=== PATIENT | male | born 1945 | race Caucasian/White ===

== ENCOUNTER → 2017-07-22 13:00 | Outpatient (CLI) | payer MEDICARE, BC, SELFPAY ==
--- NOTE | 2017-07-22 13:18 | XR_ITS ---
XR chest 2V HISTORY: ITS.REASON: AMINODORONE SURVEILLENCE, AFIB ORDERING PHYSICIAN: ARAVIND Hampton PATIENT AGE: 71 years COMPARISON: 12/19/2016 FINDINGS: There is borderline cardiomegaly without failure. Bipolar pacemaker remains in place. There are small bilateral pleural effusions which have developed in the interval slightly larger on the left compared to the right. No lobar consolidation or collapse. No evidence of interstitial fibrosis. No acute bony anomalies IMPRESSION: 1. Interval development of small bilateral pleural effusions. 2. Mild cardiomegaly without failure. 3. No evidence of interstitial lung disease
[2017-07-22 16:16] LABS: Alanine Aminotransferase 39 U/L (12-78); Albumin Level 3.7 gm/dL (3.4-5.0); Albumin/Globulin Ratio 1.4 (1.1-1.8); Alkaline Phosphatase 105 U/L (46-116); Anion Gap 10.8 mEq/L (5-15); Aspartate Amino Transferase 30 U/L (15-37); Bilirubin,Total 0.4 mg/dL (0.2-1.0); Blood Urea Nitrogen 29 mg/dL (7-18); Calcium 8.8 mg/dL (8.5-10.1); Carbon Dioxide 33 mmol/L (21.0-32.0); Chloride 106 mmol/L (98-107); Creatinine,Serum 1.51 mg/dL (0.70-1.30); Estimated Glomerular Filt Rate 46 ml/min (>60); GFR (African American) 55 ML/MIN (>60); Globulin 2.7 gm/dl (1.3-3.2); Glucose 87 mg/dL (74-106); Magnesium 1.8 mg/dL (1.4-2.2); Potassium 3.8 mmoL/L (3.5-5.1); Sodium 146 mmol/L (136-145); Thyroid Stimulating Hormone 1.85 uIU/ml (0.358-3.740); Total Protein,Serum 6.4 gm/dL (6.4-8.2)
== END ==
PROVIDERS: PCP Physician Assistant; Visit Provider Physician Assistant
DX: I48.91 Unspecified atrial fibrillation (principal); R42 Dizziness and giddiness; Z51.81 Encounter for therapeutic drug level monitoring
CPT/HCPCS: 36415; 71046; 80053; 83735; 83880; 84443

== ENCOUNTER → 2017-07-24 08:48 | Outpatient (CLI) | payer MEDICARE, BC, SELFPAY ==
--- NOTE | 2017-07-24 08:55 | CA_ITS ---
PROCEDURE: 2-D M-mode and color Doppler study INDICATIONS FOR THE TEST: Chest pain COPD Heart Murmur Tobacco Smoking Palpitations Fatigue Syncope Edema HypertensionXDiabetes Mellitus Rheumatic Fever SOB [place] ObesityXHyperlipidemia Family History HD Additional History AF,PACEMAKER,VT PATIENT INFORMATION HEIGHT: 70 WEIGHT:280 GENDER: Male B/P:150/80 2-D/M-MODE INTERPRETATION: 2-D MEASUREMENTS OBSERVED VALUES IN CMS Right Ventricular Dimension (RVDd) 2.6 Interventricular Septum (Thickness)(IVsd) 1.9 Left Ventricular Internal Dimensions(LVIDd) 5.7 Left Ventricular Posterior Wall (Thickness)(LVPWd) 1.2 Aortic Root 3.5 Aortic Cusp Separation 2.0 Left Atrial Dimensions (LAD) 4.2 2D 1. Left atrium is mildly enlarged, left ventricle is normal size, there is mild concentric left ventricular hypertrophy, visually estimated ejection fraction 55% no wall motion abnormality. 2. The right atrium is mildly enlarged, right ventricle is normal size and contractility, there is a pacemaker lead seen in the right atrium and right ventricle. 3. The aortic valve is thickened and calcified, leaflet continue to display mobility. 4. The mitral leaflets are minimally thickened and calcified, there are degenerative changes seen in both anterior and posterior mitral leaflet. 5. The tricuspid valve leaflets are minimally thickened. 6. Pulmonic valve is poorly visualized. 7. No significant pericardial effusion noted. DOPPLER INTERROGATION: Doppler interrogation of the aortic, mitral and tricuspid valve reveals presence of mild aortic, moderate to severe mitral, mild tricuspid regurgitation, calculated right ventricular systolic pressure is 47 mmHg consistent with moderate pulmonary hypertension, there is blunting of the systolic forward flow seen in the pulmonary vein. CONCLUSION: 1. Biatrial enlargement, normal left ventricular size, mild concentric left ventricular hypertrophy, visually estimated ejection fraction of 55% with no obvious regional wall motion abnormality, diastolic parameters are inconclusive. 2. Moderate to severe mitral regurgitation, there is blunting of the systolic forward flow seen in the pulmonary vein. 3. Mild aortic and tricuspid regurgitation, calculated right ventricular systolic pressure is 47 mmHg consistent with moderate pulmonary hypertension. 4. No significant pericardial effusion noted.
== END ==
PROVIDERS: PCP Physician Assistant; Visit Provider Physician Assistant
DX: I48.2 Chronic atrial fibrillation (principal); I10 Essential (primary) hypertension; R00.0 Tachycardia, unspecified
CPT/HCPCS: 93306

== ENCOUNTER → 2017-09-04 07:17 | Outpatient (CLI) | payer MEDICARE, BC, SELFPAY ==
--- NOTE | 2017-09-04 07:21 | NM_ITS ---
History and Indications: Dysrhythmia, obesity Procedure patient received a 0.4 mg of Lexiscan, resting heart rate was 71 beats per resting blood pressure 151/85, with Lexiscan maximum heart rate achieved was 70 bpm which is less than 85% of the maximum predicted heart rate and a blood pressure was 119/66. With Lexiscan patient complained of shortness of breath. Electrocardiogram: Resting electrocardiogram showed ventricular paced rythm. With Lexiscan there is less than 1.5 ST segment depression noted from the baseline EKG. The EKG portion of the Lexiscan Myoview is nondiagnostic Cardiac stress and resting SPECT images: Cardiac stress and resting SPECT images were obtained using technetium 99 Myoview 10.7 mCi at rest and 30.7 mCi at stress gated SPECT further analysis of segmental wall motion and calculation of the ejection fraction also done. Cardiac stress and the rest spect images show a fixed defect involving the inferior and posterobasal wall consistent with area of prior myocardial scarring without significant christel-infarct ischemia, computer derived ejection fraction is 40% with inferior and posterobasal wall hypokinesis. There is a fixed defect seen anteroseptally with normal contractility in the gated SPECT is likely secondary to paced rhythm with left bundle branch block. Right ventricle is mildly enlarged with normal contractility. Conclusion: 1. The EKG portion of the Lexiscan Myoview is nondiagnostic 2. Scintigraphic evidence of prior myocardial scarring involving the inferior and posterobasal wall without significant christel-infarct ischemia, computer derived ejection fraction is 40% with segmental wall motion abnormality described above, right ventricle is mildly enlarged with normal contractility. 3. Abnormal Lexiscan Myoview study
--- NOTE | 2017-09-04 10:13 | HMH.ITSHM ---
amlodipine neurontin dutasteride zoloft valsartan eliquis atorvastatin metolazom asa
== END ==
PROVIDERS: PCP Family Medicine; Visit Provider Physician Assistant
DX: I47.2 Ventricular tachycardia (principal); I20.9 Angina pectoris, unspecified
CPT/HCPCS: 78452; 93017; A9502; J2785

== ENCOUNTER → 2018-01-12 11:51 | Outpatient (CLI) | payer MEDICARE, BC, SELFPAY ==
--- NOTE | 2018-01-12 12:00 | XR_ITS ---
XR chest 2V HISTORY: ITS.REASON: HIGH RISK MEDICATION, amiodarone ORDERING PHYSICIAN: ARAVIND Hampton PATIENT AGE: 72 years COMPARISON: 07/22/2017 FINDINGS: Cardiac size is upper limits of normal. There is a bipolar pacemaker present. Lungs are clear. No lobar consolidation or collapse. No acute bony anomalies. IMPRESSION: Pacemaker present. No change with no acute finding. No convincing evidence of amiodarone lung toxicity
[2018-01-12 14:13] LABS: Alanine Aminotransferase 62 U/L (12-78); Albumin Level 3.5 gm/dL (3.4-5.0); Albumin/Globulin Ratio 1.2 (1.1-1.8); Alkaline Phosphatase 130 U/L (46-116); Anion Gap 10.8 mEq/L (5-15); Aspartate Amino Transferase 43 U/L (15-37); Bilirubin,Total 0.3 mg/dL (0.2-1.0); Blood Urea Nitrogen 32 mg/dL (7-18); Calcium 8.6 mg/dL (8.5-10.1); Carbon Dioxide 34 mmol/L (21.0-32.0); Chloride 104 mmol/L (98-107); Creatinine,Serum 1.61 mg/dL (0.70-1.30); Estimated Glomerular Filt Rate 42 ml/min (>60); GFR (African American) 51 ML/MIN (>60); Glucose 96 mg/dL (74-106); Potassium 4.8 mmoL/L (3.5-5.1); Sodium 144 mmol/L (136-145); Thyroid Stimulating Hormone 1.99 uIU/ml (0.358-3.740); Total Protein,Serum 6.5 gm/dL (6.4-8.2)
== END ==
PROVIDERS: Visit Provider Physician Assistant
DX: Z79.899 Other long term (current) drug therapy (principal); I25.10 Atherosclerotic heart disease of native coronary artery without angina pectoris
CPT/HCPCS: 36415; 71046; 80053; 84443

== ENCOUNTER → 2018-02-10 11:22 | Outpatient (CLI) | payer MEDICARE, BC, SELFPAY ==
[2018-02-10 11:56] LABS: Basophils # 0.1 K/mm3 (0-0.2); Basophils % 1.1 % (0.1-2.0); Eosinophils # 0.2 K/mm3 (0.0-0.4); Eosinophils % 3.2 % (0.1-12.0); Hematocrit 33.3 % (42.0-52.0); Hemoglobin 10.9 g/dL (14.1-18.0); Lymphocytes % 16.9 K/mm3 (10-50); Mean Corpuscular HGB Conc 32.9 g/dL (31.8-35.4); Mean Corpuscular Hemoglobin 26.5 pg (27.0-31.2); Mean Corpuscular Volume 80.7 fl (80-94); Mean Platelet Volume 7.9 fl (7.4-10.4); Monocytes # 0.4 K/mm3 (0.1-1.0); Monocytes % 5.9 % (1.7-9.3); Neutrophils # 4.3 K/mm3 (1.8-7.8); Neutrophils % 72.9 % (37.0-80.0); Platelet Count 189 K/mm3 (142-424); Red Blood Count 4.13 M/mm3 (4.60-6.20); Red Cell Distribution Width 15.3 % (11.5-17.5); White Blood Count 5.9 K/mm3 (4.8-10.8)
[2018-02-10 12:19] LABS: Creatinine,Urine Random 136 mg/dL (20-320)
[2018-02-10 14:31] LABS: Albumin Level 3.5 gm/dL (3.4-5.0); Anion Gap 8.6 mEq/L (5-15); Blood Urea Nitrogen 28 mg/dL (7-18); Calcium 8.7 mg/dL (8.5-10.1); Carbon Dioxide 32 mmol/L (21.0-32.0); Chloride 105 mmol/L (98-107); Creatinine,Serum 1.63 mg/dL (0.70-1.30); Estimated Glomerular Filt Rate 42 ml/min (>60); GFR (African American) 51 ML/MIN (>60); Glucose 111 mg/dL (74-106); Phosphorous 3.7 mg/dL (2.4-4.9); Potassium 3.6 mmoL/L (3.5-5.1); Sodium 142 mmol/L (136-145)
[2018-02-11 16:42] LABS: Calcium, Ionized 4.8 mg/dL (4.5-5.6); Parathyroid Hormone Intact 36 pg/mL (15-65); Vitamin D 25 Hydroxy 33.6 ng/mL (30.0-100.0)
[2018-02-11 16:43] LABS: Microalbumin, Urine 59.1 ug/mL (Not Estab.)
== END ==
PROVIDERS: Visit Provider Internal Medicine Nephrology
DX: N18.3 Chronic kidney disease, stage 3 (moderate) (principal)
CPT/HCPCS: 36415; 80069; 82043; 82330; 82570; 82652; 83970; 85025

== ENCOUNTER → 2018-03-01 14:10 | Outpatient (POV) | payer MEDICARE, BC, SELFPAY | PROVIDERS: PCP Family Medicine; Visit Provider Internal Medicine Nephrology | DX: Z00.00 Encounter for general adult medical examination without abnormal findings (principal) ==

== ENCOUNTER → 2018-07-07 12:17 | Outpatient (CLI) | payer MEDICARE, BC, SELFPAY ==
--- NOTE | 2018-07-07 12:25 | XR_ITS ---
XR chest 2V HISTORY: Continuing observation for amiodarone lung toxicity ITS.REASON: HIGH RISK MEDICATION, AMIODARONE THERAPY ORDERING PHYSICIAN: ARAVIND Hampton PATIENT AGE: 72 years COMPARISON: PA and lateral chest 01/12/2018 FINDINGS: The cardiomediastinal silhouette and pulmonary vascularity are within normal limits. The lungs are clear without infiltrates, suspicious nodules, or pleural effusions. There may be some minimal left basilar atelectasis. No acute bony abnormalities. The cardiac pacemaker and dual chamber electrodes are again noted. IMPRESSION: Negative chest, no acute finding and no significant interval change from the previous study
== END ==
PROVIDERS: PCP Family Medicine; Visit Provider Physician Assistant
DX: Z51.81 Encounter for therapeutic drug level monitoring (principal); Z79.899 Other long term (current) drug therapy
CPT/HCPCS: 71046

== ENCOUNTER → 2018-07-12 10:35 | Outpatient (CLI) | payer MEDICARE, BC, SELFPAY ==
--- NOTE | 2018-07-12 10:39 | CI_ITS ---
Cerebrovascular Exam Indications: 433.10 Occlusion/stenosis of carotid artery without cerebral infarction. IMPRESSIONS 1. The bilateral vertebral arteries are patent with normal antegrade flow. 2. Study suggests less than 20% stenosis involving the right internal carotid artery. No change from the study of December 2016. 3. Study suggests 50-69% stenosis involving the left internal carotid artery. No change from the study of December 2016. History: Risk factors: Hypertension. Carotid duplex study. Complete study and Doppler flow study including spectral analysis, color and mercer scale imaging. Height: Height: 177.8cm. Height: 70in. Location: Vascular laboratory. Patient status: Outpatient. Tables: Arterial flow: + +--------+--------+ Location V sys V ed + +--------+--------+ Right CCA - proximal 77.8cm/s 14.9cm/s + +--------+--------+ Right CCA - distal 88cm/s 18.2cm/s + +--------+--------+ Right ECA 139cm/s -------- + +--------+--------+ Right ICA - proximal 99.2cm/s 23.7cm/s + +--------+--------+ Right ICA - mid 84.5cm/s 24.4cm/s + +--------+--------+ Right ICA - distal 114cm/s 36.3cm/s + +--------+--------+ Right vertebral 53.3cm/s -------- + +--------+--------+ Left CCA - proximal 115cm/s 23.6cm/s + +--------+--------+ Left CCA - distal 105cm/s 21.8cm/s + +--------+--------+ Left ECA 152cm/s -------- + +--------+--------+ Left ICA - proximal 155cm/s 35.8cm/s + +--------+--------+ Left ICA - mid 161cm/s 30.9cm/s + +--------+--------+ Left ICA - distal 88.9cm/s 27.3cm/s + +--------+--------+ Left vertebral 55.9cm/s -------- + +--------+--------+ Velocity ratios: + + + + + + Right, V sys Right, V ed Left, V sys Left, V ed + + + + + + Max ICA/dist CCA 1.3 1.99 1.53 1.64 + + + + + + (Report amended ) Electronically signed by: Demetrius Martin [id number]
== END ==
PROVIDERS: PCP Family Medicine; Visit Provider Physician Assistant
DX: I65.23 Occlusion and stenosis of bilateral carotid arteries (principal)
CPT/HCPCS: 93880

== ENCOUNTER 2018-10-27 12:18 | Inpatient (IN) ==
--- NOTE | 2018-10-27 13:32 | History & Physical Report ---
*Admission Date: 10/27/18 *Chief complaint: weak; anemic *History of present illness: Mr. Mattson is a 72-year-old male with a history of hypertension, anxiety, arthritis, BPH, permanent pacemaker, and recent left knee replacement at [facility] in [facility] on 10/04/2018 complicated by renal failure and respiratory failure requiring brief mechanical ventilation with follow-up rehab at [facility] from 10/19/2018 to 10/26/2018. Patient did not feel he was doing well at [facility] and signed himself out AMA yesterday on 10/26/2018 and presented to the office of [facility] today for follow-up. He states that he could not handle the environment and was unable to sleep for 5 da ys. Thus he felt he had to leave. He had labs done yesterday at [facility] with a sodium of 136, potassium of 3.8, blood sugar of 108, BUN 15, and creatinine of 3.16. His H&H at that time were 8.2 and 27 with a white blood cell count 4.1. Platelet count was 340,000. With presentation today at [facility] hemoglobin was 8.5. Dr. Johnson also saw the patient. Infusion of packed red blood cells was planned. Patient and decided that it would be best for him to be admitted briefly for IV fluids and blood administration due to renal failure and low blood pressure. To note he had many prescriptions with changes in his blood pressure medicine at [facility]. After discharge he resumed his previous medicines and took several HTN healthy medicines for hypertension after going home. IN t is he office of [facility] systolic blood pressure was 88 and did go up to 94. His did not feel that she could manage him at home with these abnormals. With patient exam in the office patient did appear comfortable. He was quite pale. He denied chest pain and shortness of breath. [facility] History Medical History: Reports:: Anxiety, Atrial Fibrillation, Cancer (SKIN CANCER), Depression, Gastroesophageal Reflux Disease(GERD), Hypertension, Internal Pacemaker Denies:: Diabetes Mellitus Type 1, Diabetes Mellitus Type 2, MRSA, Palpitations *Have you ever received a pneumonia vaccine?: Yes *Have you received a flu vaccine this season?: Yes Other Medical History: Reports: Anemia, Hypothyroidism Laterality Cases: Left: Arthroscopy Hip, Arthroscopy Knee Other Surgeries: Yes: Hernia Repair, Pacemaker Amputation: No Fractures: No Comment: Parathyroidectomy 1983; spinal stenosis surgery 05/2013; excision of right sided grade 1 meningioma at in February 2017 - *Social History Educational Level: Completed High School Smoking Status: Never smoker Alcohol Intake: never *Occupational Status:: retired Housing: [facility] Household Members: spouse *Travel in the last 8 weeks: None - Psychiatric History Expresses thoughts of harming self/others: None Suicide Plan Description: No Plan Family Hx:: Cancer Review of Systems - Constitutional Reports lack of energy, Denies fever(s) - ENT Denies ear pain, Denies sore throat - *Cardiovascular Denies chest pain, Denies shortness of breath - *Respiratory Denies chest congestion, Denies cough, Denies shortness of breath - *Gastrointestinal Reports heartburn, Reports nausea, Denies abdominal pain, Denies vomiting Comments: Decrease in appetite - *Genitourinary Denies difficulty urinating - *Musculoskeletal Reports joint pain Comments: Postoperative pain of the left knee Meds Allergies Allergy/AdvReac Type Severity Reaction Status Date / Time GLUTEN (FOOD) Allergy Unknown WHEAT Uncoded 06/30/17 15:08 GLUTEN- RASH & DIARRHEA Exam Vital signs and Labs for Last 24 Hours: Temp Pulse Resp BP Pulse Ox 97.6 F 71 18 100/55 L 99 10/27/18 12:38 10/27/18 12:38 10/27/18 12:38 10/27/18 12:38 10/27/18 12:38 I & O for Last 24 hours: Intake & Output 10/25/18 10/26/18 10/27/18 10/28/18 11:59 11:59 11:59 11:59 Weight 236 lb 8 oz - Constitutional no acute distress Comments: Presents in wheelchair. Appears pale. Appears tired. - *Routine HEENT Exam Head: Present: normocephalic, atraumatic Eye: Present: PERRL. Absent: conjunctival icterus, scleral injection ENT: Present: mucous membranes dry, oropharynx clear - *Routine Neck Exam Present: supple. Absent: carotid bruit, lymphadenopathy, thyromegaly - *Routine Respiratory Exam Present: CTA bilaterally (Anteriorly and posteriorly) - *Routine Cardiovascular Exam Present: RRR - *Routine Abdominal Exam Present: soft, normoactive bowel sounds. Absent: tenderness - *Routine Extremities Exam Absent: edema, calf tenderness - *Routine Skin Exam Comments: Patient does have a small open area in the sacral area between the buttocks - *Routine Neurological Exam Present: alert, oriented X3 Assessment and Plan (1) Status post left knee replacement Current visit: Yes Status: Acute Category: Surgical Code(s): Z96.652 - Presence of left artificial knee joint (2) Anemia Current visit: Yes Status: Acute Category: Medical Code(s): D64.9 - Anemia, unspecified (3) Hypotension Current visit: Yes Status: Acute Category: Medical Code(s): I95.9 - Hypotension, unspecified (4) Renal failure Current visit: Yes Status: Acute Category: Medical Code(s): N19 - Unspecified kidney failure (5) History of atrial fibrillation Current visit: Yes Status: Chronic Category: Medical Code(s): Z86.79 - Personal history of other diseases of the circulatory system (6) History of permanent cardiac pacemaker placement Current visit: Yes Status: Chronic Category: Surgical Code(s): Z95.0 - Presence of cardiac pacemaker - Assessment and plan all Dx Assessment and Plan for all problems:: Patient has been started on IV fluids at 125/h. He will receive 1 unit of packed red blood cells with follow-up H&H. He will be placed on prorate clerk throughout this. He started on some of his home meds with elimination of his hypertensive medicines. He will continue with his antiarrhythmics amiodarone an d metoprolol. Discharge patient will need home health for care and for physical therapy. He will also need follow-up with nephrology.
[2018-10-27 13:49] LABS: Basophils # 0.1 K/mm3 (0-0.2); Eosinophils # 0.1 K/mm3 (0.0-0.4); Hematocrit 28.2 % (42.0-52.0); Lymphocytes # 0.7 K/mm3 (0.7-4.5); Lymphocytes % 14.6 % (10-50); Mean Corpuscular HGB Conc 31.8 g/dL (31.8-35.4); Mean Corpuscular Hemoglobin 26.5 pg (27.0-31.2); Mean Corpuscular Volume 83.2 fl (80-94); Mean Platelet Volume 6.9 fl (7.4-10.4); Monocytes # 0.3 K/mm3 (0.1-1.0); Monocytes % 6.2 % (1.7-9.3); Neutrophils # 3.7 K/mm3 (1.8-7.8); Neutrophils % 77.2 % (37.0-80.0); Platelet Count 285 K/mm3 (142-424); Red Blood Count 3.39 M/mm3 (4.60-6.20); White Blood Count 4.8 K/mm3 (4.8-10.8)
[2018-10-27 14:09] LABS: Albumin Level 3.1 gm/dL (3.4-5.0); Albumin/Globulin Ratio 0.7 (1.1-1.8); Anion Gap 16.8 mEq/L (5-15); Bilirubin,Total 0.8 mg/dL (0.2-1.0); Calcium 9.1 mg/dL (8.5-10.1); Globulin 4.5 gm/dl (1.3-3.2); Potassium 3.8 mmoL/L (3.5-5.1); Total Protein,Serum 7.6 gm/dL (6.4-8.2)
--- NOTE | 2018-10-27 14:16 | Pharmacy Consult Notes ---
[facility] Pharmacy VTE Monitoring - Patient Demographics Admission date: 10/27/18 Report Date: 10/27/18 Time: 14:15 Allergies/Adverse Reactions: Patient Allergies No Known Drug Allergies Allergy (Verified 10/27/18 14:00) Unknown allergy reaction GLUTEN (FOOD) Allergy (Unknown, Uncoded 06/30/17 15:08) WHEAT GLUTEN- RASH & DIARRHEA Height: 1.78 m Weight: 107.275 kg Patient Problems: Current Active Problems Status post left knee replacement (Acute) Anemia (Acute) Hypotension (Acute) Renal failure (Acute) History of atrial fibrillation (Chronic) History of permanent cardiac pacemaker placement (Chronic) - VTE Risk Labs: VTE Related Lab Results Hgb 9.0 g/dL (14.1-18.0) L 10/27/18 13:25 Hct 28.2 % (42.0-52.0) L 10/27/18 13:25 Plt Count 285 K/mm3 (142-424) 10/27/18 13:25 BUN 56 mg/dL (7-18) H 10/27/18 13:25 Creatinine 4.07 mg/dL (0.70-1.30) H 10/27/18 13:25 Estimated Creat Clear 25 mL/min (50-200) 10/27/18 13:25 Was VTE Risk Assessment Performed: Yes VTE Score: 6 VTE Risk Level: Moderate Risk - Prophylaxis VTE Prophylaxis Ordered?: Yes Types of VTE Prophylaxis: TEDS Knee High Location of Applied Device: Bilateral Lower Extremeties - VTE Diagnosis Confirmed Treatment or plan recommended: Continue Current Treatment
[2018-10-27 14:56] LABS: Hematocrit 29.2 % (42.0-52.0); Hemoglobin 9.2 g/dL (14.1-18.0)
[2018-10-28 07:17] LABS: Basophils % 0.7 % (0.1-2.0); Eosinophils # 0.1 K/mm3 (0.0-0.4); Eosinophils % 2.8 % (0.1-12.0); Lymphocytes # 0.8 K/mm3 (0.7-4.5); Lymphocytes % 21.4 % (10-50); Mean Corpuscular Hemoglobin 26.3 pg (27.0-31.2); Mean Corpuscular Volume 82.1 fl (80-94); Mean Platelet Volume 6.9 fl (7.4-10.4); Monocytes # 0.2 K/mm3 (0.1-1.0); Monocytes % 6.4 % (1.7-9.3); Neutrophils # 2.5 K/mm3 (1.8-7.8); Neutrophils % 68.7 % (37.0-80.0); Platelet Count 214 K/mm3 (142-424); Red Blood Count 2.88 M/mm3 (4.60-6.20); Red Cell Distribution Width 15.8 % (11.5-17.5); White Blood Count 3.7 K/mm3 (4.8-10.8)
[2018-10-28 07:24] LABS: Albumin Level 2.3 gm/dL (3.4-5.0); Albumin/Globulin Ratio 0.7 (1.1-1.8); Anion Gap 12.6 mEq/L (5-15); Bilirubin,Total 0.5 mg/dL (0.2-1.0); Globulin 3.5 gm/dl (1.3-3.2); Potassium 3.6 mmoL/L (3.5-5.1); Total Protein,Serum 5.8 gm/dL (6.4-8.2)
[2018-10-28 07:26] LABS: Hematocrit 23.6 % (42.0-52.0); Hemoglobin 7.6 g/dL (14.1-18.0)
--- NOTE | 2018-10-28 08:36 | Progress Note ---
Internal Medicine - PN: Subj *Date: 10/28/18 *Time: 08:34 Interval history: Patient states he is feeling well this morning. He denies any pain other than in his buttock from a pressure ulcer. He is requesting some medication for this. He states he slept decently last night and ate a good breakfast this morning. Exam Vital signs and Labs for Last 24 Hours: Temp Pulse Resp BP Pulse Ox 97.7 F 72 18 101/55 L 98 10/28/18 08:00 10/28/18 08:00 10/28/18 08:00 10/28/18 08:00 10/28/18 08:00 Laboratory Results - last 24 hr 10/27/18 13:25: WBC 4.8, RBC 3.39 L, Hgb 9.0 L, Hct 28.2 L, MCV 83.2, MCH 26.5 L , MCHC 31.8, RDW 16.0, Plt Count 285, MPV 6.9 L, Neut % (Auto) 77.2, Lymph % (Auto) 14.6, Oxford % (Auto) 6.2, Eos % (Auto) 1.0, Baso % (Auto) 1.0, Neut # (Auto) 3.7, Lymph # (Auto) 0.7, Oxford # (Auto) 0.3, Eos # (Auto) 0.1, Baso # (Auto) 0.1 10/27/18 13:25: Sodium 137, Potassium 3.8, Chloride 101, Carbon Dioxide 23, Anion Gap 16.8 H, BUN 56 H, Creatinine 4.07 H, Estimated Creat Clear 25, Estimated GFR 15 L*, Est GFR ( Amer) 18 L*, Glucose 97, Calcium 9.1, Magnesium 1.9, Total Bilirubin 0.8, AST 55 H, ALT 39, Alkaline Phosphatase 165 H , Total Protein 7.6, Albumin 3.1 L, Globulin 4.5 H, Albumin/Globulin Ratio 0.7 L 10/27/18 13:25: Blood Type Confirm A Positive 10/27/18 13:35: Blood Type A Positive, Antibody Screen Negative, Crossmatch (AHG) See Detail 10/27/18 13:35: Hgb 9.2 L, Hct 29.2 L 10/28/18 06:53: WBC 3.7 L, RBC 2.88 L, Hgb 7.6 L*, Hct 23.6 L*, MCV 82.1, MCH 26.3 L, MCHC 32.0, RDW 15.8, Plt Count 214, MPV 6.9 L, Neut % (Auto) 68.7, Lymph % (Auto) 21.4, Oxford % (Auto) 6.4, Eos % (Auto) 2.8, Baso % (Auto) 0.7, Neut # (Auto) 2.5, Lymph # (Auto) 0.8, Oxford # (Auto) 0.2, Eos # (Auto) 0.1, Baso # (Auto) 0.0 10/28/18 06:53: Sodium 138, Potassium 3.6, Chloride 106, Carbon Dioxide 23, Anion Gap 12.6, BUN 57 H, Creatinine 3.48 H, Estimated Creat Clear 30, Estimated GFR 17 L*, Est GFR ( Amer) 21 L, Glucose 93, Calcium 8.0 L D, Total Bilirubin 0.5, AST 40 H D, ALT 33, Alkaline Phosphatase 124 H, Total Protein 5.8 L, Albumin 2.3 L D, Globulin 3.5 H, Albumin/Globulin Ratio 0.7 L I & O for Last 24 hours: Intake & Output 10/25/18 10/26/18 10/27/18 10/28/18 11:59 11:59 11:59 11:59 Intake Total 2898 / 2898 Output Total 700 / 700 Balance 2198 / 2198 Weight 241 lb 7 oz - Constitutional no acute distress - *Routine Respiratory Exam Present: CTA bilaterally - *Routine Cardiovascular Exam Present: RRR - *Routine Abdominal Exam Present: soft, normoactive bowel sounds. Absent: tenderness - *Routine Extremities Exam Absent: cyanosis, clubbing, edema - *Routine Skin Exam Present: pallor - *Routine Neurological Exam Present: alert, oriented X3 Assessment and Plan (1) Status post left knee replacement Current visit: Yes Status: Acute Category: Surgical Code(s): Z96.652 - Presence of left artificial knee joint (2) Anemia Current visit: Yes Status: Acute Category: Medical Code(s): D64.9 - Anemia, unspecified (3) Hypotension Current visit: Yes Status: Acute Category: Medical Code(s): I95.9 - Hypotension, unspecified (4) Renal failure Current visit: Yes Status: Acute Category: Medical Code(s): N19 - Uns pecified kidney failure (5) History of atrial fibrillation Current visit: Yes Status: Chronic Category: Medical Code(s): Z86.79 - Personal history of other diseases of the circulatory system (6) History of permanent cardiac pacemaker placement Current visit: Yes Status: Chronic Category: Surgical Code(s): Z95.0 - Presence of cardiac pacemaker - Assessment and plan all Dx Assessment and Plan for all problems:: Renal function has improved only slightly. Patient's H&H has decreased with some hydration. He will need a transfusion with 2 units of packed red blood cells today. Will order zinc oxide for his pressure ulcer.
[2018-10-28 18:04] LABS: Hematocrit 32.5 % (42.0-52.0)
[2018-10-29 07:09] LABS: Basophils % 1.1 % (0.1-2.0); Eosinophils # 0.1 K/mm3 (0.0-0.4); Eosinophils % 3.6 % (0.1-12.0); Hematocrit 28.6 % (42.0-52.0); Lymphocytes # 0.7 K/mm3 (0.7-4.5); Lymphocytes % 19.2 % (10-50); Mean Corpuscular HGB Conc 32.6 g/dL (31.8-35.4); Mean Corpuscular Volume 82.8 fl (80-94); Monocytes # 0.3 K/mm3 (0.1-1.0); Monocytes % 8.4 % (1.7-9.3); Neutrophils # 2.4 K/mm3 (1.8-7.8); Neutrophils % 67.8 % (37.0-80.0); Platelet Count 190 K/mm3 (142-424); Red Blood Count 3.45 M/mm3 (4.60-6.20); Red Cell Distribution Width 15.7 % (11.5-17.5); White Blood Count 3.6 K/mm3 (4.8-10.8)
[2018-10-29 07:11] LABS: Anion Gap 14.4 mEq/L (5-15); Calcium 8.3 mg/dL (8.5-10.1); Potassium 3.4 mmoL/L (3.5-5.1)
[2018-10-29 07:27] LABS: Hemoglobin 9.3 g/dL (14.1-18.0)
--- NOTE | 2018-10-29 08:08 | Progress Note ---
Internal Medicine - PN: Subj *Date: 10/29/18 *Time: 08:06 Interval history: Patient states he is feeling much better this morning. He received a blood transfusion yesterday. His H&H has improved as has his renal function. His blood pressure has also improved. Exam Vital signs and Labs for Last 24 Hours: Temp Pulse Resp BP Pulse Ox 98.3 F 69 17 165/63 H 95 10/29/18 04:00 10/29/18 04:00 10/29/18 04:00 10/29/18 04:00 10/29/18 04:00 Laboratory Results - last 24 hr 10/27/18 13:35: Blood Type A Positive, Antibody Screen Negative, Crossmatch (AHG) See Detail 10/28/18 17:52: Hgb 11.0 L D, Hct 32.5 L 10/29/18 06:25: WBC 3.6 L, RBC 3.45 L, Hgb 9.3 L D, Hct 28.6 L, MCV 82.8, MCH 27.0, MCHC 32.6, RDW 15.7, Plt Count 190, MPV 7.0 L, Neut % (Auto) 67.8, Lymph % (Auto) 19.2, Nash % (Auto) 8.4, Eos % (Auto) 3.6, Baso % (Auto) 1.1, Neut # (Auto) 2.4, Lymph # (Auto) 0.7, Nash # (Auto) 0.3, Eos # (Auto) 0.1, Baso # (Auto) 0.0 10/29/18 06:25: Sodium 140, Potassium 3.4 L, Chloride 107, Carbon Dioxide 22, Anion Gap 14.4, BUN 47 H, Creatinine 2.24 H D, Estimated Creat Clear 47, Estimated GFR 29 L, Est GFR ( Amer) 35 L D, Glucose 88, Calcium 8.3 L I & O for Last 24 hours: Intake & Output 10/26/18 10/27/18 10/28/18 10/29/18 11:59 11:59 11:59 11:59 Intake Total 2898 / 2898 3299 / 3299 Output Total 700 / 700 1900 / 1900 Balance 2198 / 2198 1399 / 1399 Weight 241 lb 7 oz 244 lb 2 oz - Constitutional no acute distress - *Routine Respiratory Exam Present: CTA bilaterally - *Routine Cardiovascular Exam Present: RRR - *Routine Abdominal Exam Present: soft, normoactive bowel sounds. Absent: tenderness - *Routine Extremities Exam Present: edema (bilateral LE). Absent: cyanosis, clubbing - *Routine Skin Exam Comments: better color today Assessment and Plan (1) Status post left knee replacement Current visit: Yes Status: Acute Category: Surgical Code(s): Z96.652 - Presence of left artificial knee joint (2) Anemia Current visit: Yes Status: Acute Category: Medical Code(s): D64.9 - Anemia, unspecified (3) Hypotension Current visit: Yes Status: Acute Category: Medical Code(s): I95.9 - Hypotension, unspecified (4) Renal failure Current visit: Yes Status: Acute Category: Medical Code(s): N19 - Unspecified kidney failure (5) History of atrial fibrillation Current visit: Yes Status: Chronic Category: Medical Code(s): Z86.79 - Personal history of other diseases of the circulatory system (6) History of permanent cardiac pacemaker placement Current visit: Yes Status: Chronic Category: Surgical Code(s): Z95.0 - Presence of cardiac pacemaker - Assessment and plan all Dx Assessment and Plan for all problems:: Patient is improving. Will discuss further care with Dr. lo.
--- NOTE | 2018-11-01 21:19 | Discharge Summary ---
General - General Admission date:: 10/27/18 Discharge date: 10/29/18 HPI HPI: Mr. Mattson is a 72-year-old male with a history of hypertension, anxiety, arthritis, BPH, permanent pacemaker, and recent left knee replacement at [facility] in [facility] on 10/04/2018 complicated by renal failure and respiratory failure requiring brief mechanical ventilation with follow-up rehab at [facility] from 10/19/2018 to 10/26/2018. Patient did not feel he was doing well at [facility] and signed himself out AMA yesterday on 10/26/2018 and presented to the office of [facility] today for follow-up. He states that he could not handle the environment and was unable to sleep for 5 days. Thus he felt he had to leave. He had labs done yesterday at [facility] with a sodium of 136, potassium of 3.8, blood sugar of 108, BUN 15, and creatinine of 3.16. His H&H at that time were 8.2 and 27 with a white blood cell count 4.1. Platelet count was 340,000. With presentation today at [facility] hemoglobin was 8.5. Dr. Lo also saw the patient. Infusion of packed red blood cells was planned. Patient and decided that it would be best for him to be admitted briefly for IV fluids and blood administration due to renal failure and low blood pressure. To note he had many prescriptions with changes in his blood pressure medicine at [facility]. After discharge he resumed his previous medicines and took several HTN healthy medicines for hypertension after going home. IN t is he office of [facility] systolic blood pressure was 88 and did go up to 94. His did not feel that she could manage him at home with these abnormals. With patient exam in the office patient did appear comfortable. He was quite pale. He denied chest pain and shortness of breath. Hospital Course Hospital Course: A blood transfusion was ordered and the patient was started on IV fluids at 125 milliliters per hour. He was placed on a residential monitor and some of his home medications were reordered with the elimination of his hypertensive medications due to low blood pressure. The patient had a chest x-ray showing nothing acute. When his H&H was initially checked at [facility], his hemoglobin was 9 and when repeated, it was 9.2. He therefore did not get a blood transfusion during his first day of admission. His repeat H&H after hydration was 7.6 and 23.6, therefore 2 units of packed red blood cells were transfused. His H&H after this was 11 and 32.5. His renal function did improve with hydration but was still elevated at the time of discharge. He did feel better after receiving blood and denied any pain other than in his buttocks from a pressure wound. Medication was ordered for this. He began eating well and his blood pressure improved. He was stable to be discharged home and will follow up with Dr. lo in the office. He will have home health service at home for continued rehab. Objective Vital signs: Temp Pulse Resp BP Pulse Ox 98.1 F 70 18 148/68 H 96 10/29/18 08:00 10/29/18 08:00 10/29/18 08:00 10/29/18 08:00 10/29/18 08:00 Narrative: - Constitutional no acute distress Comments: Presents in wheelchair. Appears pale. Appears tired. - *Routine HEENT Exam Head: Present: normocephalic, atraumatic Eye: Present: PERRL. Absent: conjunctival icterus, scleral injection ENT: Present: mucous membranes dry, oropharynx clear - *Routine Neck Exam Present: supple. Absent: carotid bruit, lymphadenopathy, thyromegaly - *Routine Respiratory Exam Present: CTA bilaterally (Anteriorly and posteriorly) - *Routine Cardiovascular Exam Present: RRR - *Routine Abdominal Exam Present: soft, normoactive bowel sounds. Absent: tenderness - *Routine Extremities Exam Absent: edema, calf tenderness - *Routine Skin Exam Comments: Patient does have a small open area in the sacral area between the buttocks - *Routine Neurological Exam Present: alert, oriented X3 DS: Diagnosis - Discharge Diagnosis (1) Status post left knee replacement Status: Acute (2) Anemia Status: Acute (3) Hypotension Status: Acute (4) Renal failure Status: Acute (5) History of atrial fibrillation Status: Chronic (6) History of permanent cardiac pacemaker placement Status: Chronic Discharge Plan - Patient Discharge Instructions ACTIVITY: Ambulate as tolerated DIET: continue same diet Patient Instructions: Anemia, DI for Kidney Failure - Follow up Plan Disposition: Home Health Service Home Medications: Home Medications Medication Instructions Recorded Confirmed Type Amiodarone HCl 200 mg PO DAILY 10/27/18 10/27/18 History Apixaban [Eliquis] 5 mg PO BID 10/27/18 10/27/18 History Atorvastatin Calcium [Atorvastatin 40 mg PO HS 10/27/18 10/27/18 History 40mg Tab] Dutasteride 0.5 mg PO DAILY 10/27/18 10/27/18 History Gabapentin [Neurontin 800mg Tab] 800 mg PO TID 10/27/18 10/27/18 History Metoprolol Succinate [Toprol XL 100 mg PO DAILY 10/27/18 10/27/18 History 100mg tablet] Sertraline HCl [Zoloft] 200 mg PO DAILY 10/27/18 10/27/18 History Terazosin HCl 20 mg PO DAILY 10/27/18 10/28/18 History Hydrocodone/Acetaminophen [Lortab 1 tab PO Q6HP PRN tab 10/29/18 Rx 10/325mg tablet] Potassium Chloride [Klor-Con 10mEq 20 meq PO DAILY #30 tablet.er 10/29/18 Rx tab] Prescriptions/Medication Reconciliation: New Hydrocodone/Acetaminophen [Lortab 10/325mg tablet] 1 tab PO Q6HP PRN tab PRN Reason: POSTOP PAIN Continued Amiodarone HCl 200 mg PO DAILY Sertraline HCl [Zoloft] 200 mg PO DAILY Atorvastatin Calcium [Atorvastatin 40mg Tab] 40 mg PO HS Dutasteride 0.5 mg PO DAILY Metoprolol Succinate [Toprol XL 100mg tablet] 100 mg PO DAILY Terazosin HCl 20 mg PO DAILY Apixaban [Eliquis] 5 mg PO BID Gabapentin [Neurontin 800mg Tab] 800 mg PO TID Changed Potassium Chloride [Klor-Con 10mEq tab] 20 meq PO DAILY #30 tablet.er Discontinued Hydralazine HCl [Hydralazine HCl 25mg Tablet] 25 mg PO DIRECTED metOLazone [metOLazone 2.5mg Tablet] 2.5 mg PO DAILY Valsartan/Hydrochlorothiazide [Valsartan-Hctz 320-25 mg Tab] 1 each PO DAILY Amlodipine Besylate [Amlodipine 5mg tab] 5 mg PO DAILY
== END 2018-10-29 11:55 | disposition home health service (06) | DRG 316 ==
LOC: 2ND → OBSVTOIN 12:23
PROVIDERS: ADMIT Family Medicine; ATTEND Family Medicine
CPT/HCPCS: 36415; 71020; 71046; 80048; 80053; 83735; 85014; 85018; 85025; 86850; P9016

== ENCOUNTER → 2018-11-12 09:52 | Outpatient (CLI) | payer MEDICARE, BC, SELFPAY ==
[2018-11-12 10:17] LABS: Basophils # 0.1 K/mm3 (0-0.2); Basophils % 0.9 % (0.1-2.0); Eosinophils # 0.3 K/mm3 (0.0-0.4); Eosinophils % 5.4 % (0.1-12.0); Hematocrit 30.1 % (42.0-52.0); Hemoglobin 9.7 g/dL (14.1-18.0); Lymphocytes # 0.8 K/mm3 (0.7-4.5); Mean Corpuscular HGB Conc 32.4 g/dL (31.8-35.4); Mean Corpuscular Hemoglobin 26.8 pg (27.0-31.2); Mean Corpuscular Volume 82.8 fl (80-94); Mean Platelet Volume 8.8 fl (7.4-10.4); Monocytes # 0.3 K/mm3 (0.1-1.0); Monocytes % 6.3 % (1.7-9.3); Neutrophils # 3.6 K/mm3 (1.8-7.8); Neutrophils % 72.4 % (37.0-80.0); Platelet Count 214 K/mm3 (142-424); Red Blood Count 3.63 M/mm3 (4.60-6.20)
[2018-11-12 11:24] LABS: Anion Gap 12.8 mEq/L (5-15); Blood Urea Nitrogen 22 mg/dL (7-18); Carbon Dioxide 26 mmol/L (21.0-32.0); Chloride 105 mmol/L (98-107); Potassium 3.8 mmoL/L (3.5-5.1); Sodium 140 mmol/L (136-145)
[2018-11-12 11:25] LABS: Albumin Level 3.1 gm/dL (3.4-5.0); Calcium 8.8 mg/dL (8.5-10.1); Estimated Glomerular Filt Rate 43 ml/min (>60); GFR (African American) 52 ML/MIN (>60); Glucose 95 mg/dL (74-106); Phosphorous 3.5 mg/dL (2.4-4.9); Uric Acid 6.5 mg/dL (2.6-7.2)
[2018-11-13 20:42] LABS: Calcium, Ionized 5.2 mg/dL (4.5-5.6); Parathyroid Hormone Intact 29 pg/mL (15-65); Vitamin D 25 Hydroxy 33.8 ng/mL (30.0-100.0)
== END ==
PROVIDERS: Visit Provider Internal Medicine Nephrology
DX: N18.3 Chronic kidney disease, stage 3 (moderate) (principal)
CPT/HCPCS: 36415; 80069; 82330; 82652; 83520; 83970; 84550; 85025

== ENCOUNTER → 2018-11-15 12:19 | Outpatient (POV) | payer MEDICARE, BC, SELFPAY | PROVIDERS: Visit Provider Internal Medicine Nephrology | DX: Z00.00 Encounter for general adult medical examination without abnormal findings (principal) ==

== ENCOUNTER 2018-12-12 08:47 | Inpatient (IN) | payer MEDICARE, BC, SELFPAY ==
[2018-12-12] VITALS (13 sets, daily range): BP systolic 132–178; BP diastolic 66–86; PULSE 68–80; RESP 16–22; TEMP 36.6–36.8; O2SAT 92–100; BMI 35.2
--- NOTE | 2018-12-12 08:58 | XR_ITS ---
XR chest portable HISTORY: Shortness of breath ITS.REASON: marlin ORDERING PHYSICIAN: Ari Fishman MD PATIENT AGE: 72 years COMPARISON: 10/27/2018 FINDINGS: Borderline cardiomegaly without failure. Bipolar pacemaker is present from left subclavian approach. Patchy density is present in the lung bases and may be due to areas of atelectasis or infiltrate. Small bilateral pleural effusions are suspected. No acute bony anomalies. IMPRESSION: Patchy bibasilar airspace disease with small bilateral effusions
--- NOTE | 2018-12-12 09:00 | HMH.EDGENADL ---
ED Disposition Clinical Impression: Elevated troponin Congestive heart failure Qualifiers: Heart failure type: unspecified Heart failure chronicity: unspecified Qualified Code(s): I50.9 - Heart failure, unspecified Disposition: Admitted as Observation Condition on Discharge: Good Referrals: Aleksandar Lo MD [Primary Care Provider] - - Critical Care Critical Care Time: No Attestation: On 12/12/18, the high probability of a clinically significant, sudden or life threatening deterioration of the following system(s) required my full and direct attention, intervention and personal management. The time I documented below is in addition to time spent performing reported procedures but includes the following listed in this critical care notation. Medical Decision Making - Medical Records Medical records reviewed: Yes: I reviewed the patient's medical records. - Héctor Inquiry Pt receiving controlled substance: No Vital Signs: 12/12/18 08:47 12/12/18 08:56 Temperature 98 F Temperature Source Oral Pulse Rate [Left Apical] 70 76 Respiratory Rate 18 Blood Pressure [Right Arm] 157/73 H 178/78 H Blood Pressure Mean [Right Arm] 101 111 02 Sat by Pulse Oximetry 94 L 93 L Oxygen Delivery Method Room Air - Lab Data Lab results reviewed: Yes: I reviewed the patient's lab results. Lab Results 12/12/18 09:05: WBC 5.5, RBC 3.44 L, Hgb 9.4 L, Hct 27.7 L, MCV 80.4, MCH 27.2, MCHC 33.8, RDW 16.3, Plt Count 245, MPV 7.8, Neut % (Auto) 78.1, Lymph % (Auto) 12.0, [place] % (Auto) 6.0, Eos % (Auto) 3.4, Baso % (Auto) 0.6, Neut # (Auto) 4.3, Lymph # (Auto) 0.7, [place] # (Auto) 0.3, Eos # (Auto) 0.2, Baso # (Auto) 0.0 12/12/18 09:05: D-Dimer 3080 H* 12/12/18 09:05: Sodium 142, Potassium 3.7, Chloride 104, Carbon Dioxide 26, Anion Gap 15.7 H, BUN 19 H, Creatinine 1.40 H, Estimated Creat Clear 75, Estimated GFR 50 L, Est GFR ( Amer) 60, Glucose 100, Calcium 8.5, Total Bilirubin 0.6, AST 38 H, ALT 43, Alkaline Phosphatase 163 H, Troponin I 0.07 H, Total Protein 6.5, Albumin 3.1 L, Globulin 3.4 H, Albumin/Globulin Ratio 0.9 L 12/12/18 09:05: B-Natriuretic Peptide 959 H 12/12/18 09:36: Lactate 1.0 Result diagrams: 12/12/18 09:05 12/12/18 09:05 Orders (Tests/Meds): ED MEDICATIONS Discontinued Medications Generic Name Dose Route Start Last Admin Trade Name Freq PRN Reason Stop Dose Admin Albuterol/Ipratropium 3 ml 12/12/18 08:59 12/12/18 09:09 Duoneb 3ml Neb IH 12/12/18 09:00 3 ml ONCE ONE Administration Aspirin 324 mg 12/12/18 10:22 Aspirin 81mg Chewable Tablet PO 12/12/18 10:23 ONCE ONE Enoxaparin Sodium 110 mg 12/12/18 10:21 Lovenox 120mg/0.8ml Syringe SQ 12/12/18 10:22 ONCE ONE Furosemide 20 mg 12/12/18 08:59 12/12/18 09:09 Lasix 20mg/2ml Vial IV 12/12/18 09:00 20 mg ONCE ONE Administration ORDERS Category Date Time Status CT chest wo con Stat Cat Scan 12/12/18 10:20 Ordered Blood Culture Stat Micro 12/12/18 09:36 Received VQ Scan [NM pul vent and perfuse] Stat Nuc Med 12/12/18 10:21 Ordered ECG Request by /Nse Stat Y 12/12/18 08:58 Ordered - Radiology Data #1 Image(s): Chest Image Reviewed: Yes I have reviewed radiologist's interpretation Preliminary Findings: Abnormal (bilateral effusions) - ECG Data Tracing #1 I reviewed this ECG and interpreted as documented below: Normal Sinus Rhythm: No (atrial paced 70, inferolateral t inversions new since 2012, no stemi) Medical Decision Narrative: consult d/w Dr Jaime, admit d/w Dr Lo, for hypoxia, elevated troponin, elevated ddimer, chf General Adult HPI - General Stated complaint: soa Time Seen by Provider: 12/12/18 09:00 Mode of Arrival: Ambulatory Source of Information: Patient Limitations: No Limitations Description of Symptoms (Recalled from ER Triage Doc. by RN): pt c/o soa for about a week. PT states he was just seen by Dr. lo on thursday and was put on a di
[2018-12-12 09:15] LABS: Basophils % 0.6 % (0.1-2.0); Eosinophils # 0.2 K/mm3 (0.0-0.4); Eosinophils % 3.4 % (0.1-12.0); Hematocrit 27.7 % (42.0-52.0); Hemoglobin 9.4 g/dL (14.1-18.0); Lymphocytes # 0.7 K/mm3 (0.7-4.5); Mean Corpuscular HGB Conc 33.8 g/dL (31.8-35.4); Mean Corpuscular Hemoglobin 27.2 pg (27.0-31.2); Mean Corpuscular Volume 80.4 fl (80-94); Mean Platelet Volume 7.8 fl (7.4-10.4); Monocytes # 0.3 K/mm3 (0.1-1.0); Neutrophils # 4.3 K/mm3 (1.8-7.8); Neutrophils % 78.1 % (37.0-80.0); Platelet Count 245 K/mm3 (142-424); Red Blood Count 3.44 M/mm3 (4.60-6.20); Red Cell Distribution Width 16.3 % (11.5-17.5); White Blood Count 5.5 K/mm3 (4.8-10.8)
[2018-12-12 09:27] LABS: Alanine Aminotransferase 43 U/L (12-78); Albumin Level 3.1 gm/dL (3.4-5.0); Albumin/Globulin Ratio 0.9 (1.1-1.8); Alkaline Phosphatase 163 U/L (46-116); Anion Gap 15.7 mEq/L (5-15); Aspartate Amino Transferase 38 U/L (15-37); Bilirubin,Total 0.6 mg/dL (0.2-1.0); Blood Urea Nitrogen 19 mg/dL (7-18); Calcium 8.5 mg/dL (8.5-10.1); Carbon Dioxide 26 mmol/L (21.0-32.0); Chloride 104 mmol/L (98-107); Creatinine Clearance Estimated 75 mL/min (50-200); Estimated Glomerular Filt Rate 50 ml/min (>60); GFR (African American) 60 ML/MIN (>60); Globulin 3.4 gm/dl (1.3-3.2); Glucose 100 mg/dL (74-106); Potassium 3.7 mmoL/L (3.5-5.1); Sodium 142 mmol/L (136-145); Total Protein,Serum 6.5 gm/dL (6.4-8.2); Troponin I 0.07 ng/ml (0.00-0.06)
[2018-12-12 09:31] LABS: D-Dimer 3080 ng/mL (0-400)
--- NOTE | 2018-12-12 09:31 | PC.NURSE ---
notified of critical DDimer
--- NOTE | 2018-12-12 09:53 | PC.NURSE ---
paged dr lo @ this time
--- NOTE | 2018-12-12 10:20 | CT_ITS ---
CT chest wo con HISTORY: Shortness of breath, heart disease ITS.REASON: marlin/chf ORDERING PHYSICIAN: Aleksandar Johnson MD PATIENT AGE: 72 years COMPARISON: 06/13/2016 Technique: Axial images obtained. Sagittal, and coronal reformatted images are also generated and reviewed. All CT scans at the facility use one or more dose reduction, viz: automated exposure control, ma/kV adjustment per patient size (including targeted exams where dose is matched to indication, i.e. head), or iterative reconstruction technique. FINDINGS: Bipolar pacemaker is present from left subclavian approach. There is extensive coronary artery calcification. No evidence of aortic aneurysm. There are scattered small nodes in the mediastinum slightly more prominent when compared to the previous study with pretracheal nodes measuring up to 1.4 cm. No evidence of pericardial effusion. There are medium-sized bilateral pleural effusions with compressive atelectatic change. Alveolar opacification is present in the left lung base may be due to superimposed pneumonia. There is a right-sided pericardial fluid collection measuring 3.6 x 2.5 cm and may be due to a pericardial cyst. No acute bony findings. IMPRESSION: 1. Medium sized bilateral pleural effusion with compressive atelectatic changes with possible superimposed pneumonia in the left lower lobe 2. 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 3. Extensive coronary artery calcification consistent with coronary artery disease
--- NOTE | 2018-12-12 10:25 | PC.NURSE ---
CALLED CHARGE NURSE ON 2ND FLOOR FOR BED ASSIGNMENT. PATIENT WILL BE ADMITTED TO ROOM 218. ER STAFF ANAHI NOTIFIED AT THIS TIME
--- NOTE | 2018-12-12 10:33 | PC.NURSE ---
pt voided 800cc per urinal
--- NOTE | 2018-12-12 10:37 | PC.NURSE ---
PT GOING TO CT VIA W/C
--- NOTE | 2018-12-12 10:57 | PC.NURSE ---
pt back from ct
--- NOTE | 2018-12-12 11:50 | PC.NURSE ---
Pt arrived to floor at this time.
[2018-12-12 14:10] LABS: Troponin I 0.06 ng/ml (0.00-0.06)
--- NOTE | 2018-12-12 14:44 | HMH.HP ---
*Admission Date: 12/12/18 *Chief complaint: Short of air *History of present illness: This 72-year-old white male patient presented to the emergency room at [facility] and was admitted with evidence of congestive heart failure and elevated troponins. The patient has had a difficult course lately. He has known renal insufficiency. He underwent left knee replacement at [facility] 10/04/2018. He went into renal and respiratory failure after surgery and was on a ventilator and in the intensive care unit for nearly a week. He was discharged from [facility] on October 19 and went to [facility] for rehabilitation. He checked himself out of [facility] on 26 October. He was seen in follow-up in the office in [facility] and found to be anemic. Transfusion with packed red blood cells was arranged. Prior to his presentation in the emergency room this the patient was seen Thursday by Dr. Crowley 12/10/2018 in the office of [facility]. He was complaining of shortness of breath at that point. Hemoglobin was 8.8 in the office white blood cell count was only 6000. Hydrochlorothiazide 12.5 mg p.o. daily was added to his regimen at that point but the shortness of breath progressed through the weekend and thus resulted in his presentation in the emergency room today. Also significant in the picture is pacemaker placement April 19, [address] Freeman. He last had a heart catheterization September 2017. Excision of right sided grade 1 meningioma [facility] March 06, 2017. [facility] History Medical History: Reports:: Anxiety, Atrial Fibrillation, Cancer (right ear), Congestive Heart Failure, Depression, Gastroesophageal Reflux Disease(GERD), Hyperlipidemia, Hypertension, Internal Pacemaker Denies:: Diabetes Mellitus Type 1, Diabetes Mellitus Type 2, MRSA, Palpitations *Have you ever received a pneumonia vaccine?: Yes *Have you received a flu vaccine this season?: Yes Other Medical History: Reports: Anemia, Arthritis, Hypothyroidism Laterality Cases: Left: Arthroscopy Hip, Arthroscopy Knee, Total Hip Replacement, Total Knee Replacement Other Surgeries: Yes: Cardiac Catheterization, Colonoscopy (September 2005), Hernia Repair (April 2006, umbilical), Pacemaker (04/19/2015), Thyroidectomy (parathyroidectomy), Other (Parathyroidectomy 1983, excision right sided gr 1 meningioma 03/06/2017) Amputation: No Fractures: No Comment: MILD for spinal stenosis 05/2013 - *Social History Educational Level: Completed High School Smoking Status: Former smoker Tobacco Type: cigarettes (Quit smoking over 20 years ago.) Alcohol Intake: never Substance Use Type: denies use *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 Review of Systems - Constitutional Reports fatigue, Reports weakness, Denies body ache(s), Denies chills - Eyes Denies change in vision - ENT Reports change in voice (Since his last hospitalization. He was on a ventilator.), Reports hoarseness, Denies abnormal hearing, Denies difficulty swallowing - *Cardiovascular Reports shortness of breath, Reports shortness of breath with activity, Reports leg swelling, Denies chest pain, Denies irregular heart rhythm, Denies fainting - *Respiratory Reports chest congestion, Reports cough, Reports shortness of breath with activity - *Gastrointestinal Denies abdominal pain, Denies change in bowel habits, Denies black, tarry stools - *Genitourinary Denies difficulty urinating - *Musculoskeletal Reports back pain, Reports muscle weakness - Integumentary/Breasts Denies lesions - *Neurologic Denies dizziness, Denies
--- NOTE | 2018-12-12 14:49 | P.HP_ITS ---
*Admission Date: 12/12/18 *Chief complaint: Short of air *History of present illness: This 72-year-old white male patient presented to the emergency room at [facility] and was admitted with evidence of congestive heart failure and elevated troponins. The patient has had a difficult course lately. He has known renal insufficiency. He underwent left knee replacement at [facility] 10/04/2018. He went into renal and respiratory failure after surgery and was on a ventilator and in the intensive care unit for nearly a week. He was discharged from [facility] on October 19 and went to [facility] for rehabilitation. He checked himself out of [facility] on 26 October. He was seen in follow-up in the office in [facility] and found to be anemic. Transfusion with packed red blood cells was arranged. Prior to his presentation in the emergency room this the patient was seen Thursday by Dr. Crowley 12/10/2018 in the office of [facility]. He was complaining of shortness of breath at that point. Hemoglobin was 8.8 in the office white blood cell count was only 6000. Hydrochlorothiazide 12.5 mg p.o. daily was added to his regimen at that point but the shortness of breath progressed through the weekend and thus resulted in his presentation in the emergency room today. Also significant in the picture is pacemaker placement April 19, [address] Freeman. He last had a heart catheterization September 2017. Excision of right sided grade 1 meningioma [facility] March 06, 2017. [facility] History Medical History: Reports:: Anxiety, Atrial Fibrillation, Cancer (right ear), Congestive Heart Failure, Depression, Gastroesophageal Reflux Disease(GERD), Hyperlipidemia, Hypertension, Internal Pacemaker Denies:: Diabetes Mellitus Type 1, Diabetes Mellitus Type 2, MRSA, Palpitations *Have you ever received a pneumonia vaccine?: Yes *Have you received a flu vaccine this season?: Yes Other Medical History: Reports: Anemia, Arthritis, Hypothyroidism Laterality Cases: Left: Arthroscopy Hip, Arthroscopy Knee, Total Hip Replacement, Total Knee Replacement Other Surgeries: Yes: Cardiac Catheterization, Colonoscopy (September 2005), Hernia Repair (April 2006, umbilical), Pacemaker (04/19/2015), Thyroidectomy (parathyroidectomy), Other (Parathyroidectomy 1983, excision right sided gr 1 meningioma 03/06/2017) Amputation: No Fractures: No Comment: MILD for spinal stenosis 05/2013 - *Social History Educational Level: Completed High School Smoking Status: Former smoker Tobacco Type: cigarettes (Quit smoking over 20 years ago.) Alcohol Intake: never Substance Use Type: denies use *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 Review of Systems - Constitutional Reports fatigue, Reports weakness, Denies body ache(s), Denies chills - Eyes Denies change in vision - ENT Reports change in voice (Since his last hospitalization. He was on a ventilator.), Reports hoarseness, Denies abnormal hearing, Denies difficulty swallowing - *Cardiovascular Reports shortness of breath, Reports shortness of breath with activity, Reports leg swelling, Denies chest pain, Denies irregular heart rhythm, Denies fainting - *Respiratory Reports chest congestion, Reports cough, Reports shortness of breath
[2018-12-12 16:01] LABS: Thyroid Stimulating Hormone 1.16 uIU/ml (0.358-3.740)
--- NOTE | 2018-12-12 16:08 | PC.NURSE ---
PT IS SITTING UP ON THE SOB WATCHING TV AT THIS TIME. NO COMPLAINTS OF DISCOMFORT. ALERT AND ORIENTED X4. 2+EDEMA NOTED TO BLE. PT HAS AMBULATED TO THE BATHROOM WITH WALKER. EATING AND DRINKING WELL. PT HAS AN AREA NOTED TO THE COCCYX AND HE STATES IT HAS BEEN THERE SINCE HIS KNEE SURGERY IN SEPTEMBER WHEN HE WAS AT [facility]. LUNG SOUNDS DIMINISHED WITH FINE CRACKLES IN THE BASES. BOWEL SOUNDS NORMAL. VSS. WILL CONTINUE TO MONITOR.
[2018-12-12 17:23] LABS: Troponin I 0.06 ng/ml (0.00-0.06)
[2018-12-13] VITALS (9 sets, daily range): BP systolic 129–174; BP diastolic 49–75; PULSE 68–74; RESP 12–18; TEMP 36.5–36.8; O2SAT 92–97; BMI 34.2
--- NOTE | 2018-12-13 02:50 | PC.NURSE ---
Pt's oxygen saturation kept dropping but only for short periods. As sleep continues, levels began dropping into lower 80's. In to observe pt's breathing pattern the first two times appeared to be rhythmic and no problems noted. When pt dropped to 79%, into the room for longer observation pt is having apneic episodes. Placed pt on 02LNC, will continue monitoring and pass along observations to dayshift RN and/or MD.
--- NOTE | 2018-12-13 04:34 | PC.NURSE ---
Pt and talkative in earlier shift discussing pt's recent [facility] care with knee replacement and kidney failure. Pt uses rolling walker well to manipulate his environment to and from bathroom. Pt explained he has celiac disease and uses the bathroom often but that is his normal routine, uses urinal at bedside. Emptied urinal several times with urine being clear, yellow and no foul odor noted. No c/o pain thus far. Lung jaramillo remain diminished in bilateral bases but air movement can be detected in all jaramillo, no cough noted. As previously noted, oxygen saturation decreased during sleep for which 022LNC was placed to keep sats above 90%. Watching pt sleeping, some pauses were noted when saturation dropped. Awakened pt, he reported being fine with no pain or distress at all reporting, I'm doing fine, how are you? Discussed his oxygen levels dropping and pt reported not sleeping for three days, he was very tired. Second assessment was negative for any changes from previous assessment. 2+ edema in bilateral lower legs remain with ENA hose in place, lung jaramillo unchanged, dual pacer noted on tele, blood pressure fluctuates, more on the higher side than not except when in a deep sleep readings would lower. Pt asked about his Atorvastatin during 2100 med pass, advised to speak to MD concerning med as it was not on the mar to be given, he voiced he would talk to Dr Johnson this morning. Pt participates in POC, remained safe and stable during my care, will continue monitoring.
[2018-12-13 06:15] LABS: Blood Urea Nitrogen 21 mg/dL (7-18); Calcium 8.2 mg/dL (8.5-10.1); Carbon Dioxide 30 mmol/L (21.0-32.0); Chloride 105 mmol/L (98-107); Creatinine Clearance Estimated 65 mL/min (50-200); Creatinine,Serum 1.54 mg/dL (0.70-1.30); Estimated Glomerular Filt Rate 45 ml/min (>60); GFR (African American) 54 ML/MIN (>60); Glucose 97 mg/dL (74-106); Sodium 144 mmol/L (136-145)
[2018-12-13 06:17] LABS: Basophils % 0.7 % (0.1-2.0); Eosinophils # 0.2 K/mm3 (0.0-0.4); Eosinophils % 4.5 % (0.1-12.0); Hematocrit 27.2 % (42.0-52.0); Hemoglobin 8.8 g/dL (14.1-18.0); Lymphocytes # 0.8 K/mm3 (0.7-4.5); Lymphocytes % 16.2 % (10-50); Mean Corpuscular HGB Conc 32.4 g/dL (31.8-35.4); Mean Corpuscular Hemoglobin 26.6 pg (27.0-31.2); Mean Corpuscular Volume 81.9 fl (80-94); Mean Platelet Volume 7.2 fl (7.4-10.4); Monocytes # 0.3 K/mm3 (0.1-1.0); Monocytes % 6.6 % (1.7-9.3); Neutrophils # 3.7 K/mm3 (1.8-7.8); Platelet Count 222 K/mm3 (142-424); Red Blood Count 3.32 M/mm3 (4.60-6.20); Red Cell Distribution Width 16.4 % (11.5-17.5); White Blood Count 5.1 K/mm3 (4.8-10.8)
--- NOTE | 2018-12-13 07:25 | P.CONPHA_ITS ---
[facility] Pharm[facility] VTE Monitoring - Patient Demographics Admission date: 12/12/18 Report Date: 12/13/18 Time: 07:25 Allergies/Adverse Reactions: Patient Allergies gluten Allergy (Severe, Verified 10/28/18 11:56) Rash Height: 1.78 m Weight: 108.182 kg Patient Problems: Current Active Problems (Updated 12/12/18 @ 15:10 by Aleksandar Johnson MD) Congestive heart failure (Acute) Elevated troponin (Acute) Edema (Acute) Pleural effusion (Acute) Pericardial effusion (Acute) Elevated d-dimer (Acute) - VTE Risk Labs: VTE Related Lab Results Hgb 8.8 g/dL (14.1-18.0) L 12/13/18 05:32 Hct 27.2 % (42.0-52.0) L 12/13/18 05:32 Plt Count 222 K/mm3 (142-424) 12/13/18 05:32 BUN 21 mg/dL (7-18) H 12/13/18 05:32 Creatinine 1.54 mg/dL (0.70-1.30) H 12/13/18 05:32 Estimated Creat Clear 65 mL/min (50-200) 12/13/18 05:32 VTE Score: 3 VTE Risk Level: Low Risk - Prophylaxis VTE Prophylaxis Ordered?: Yes Types of VTE Prophylaxis: TEDS Knee High Location of Applied Device: Bilateral Lower Extremeties - VTE Diagnosis Confirmed Treatment or plan recommended: Continue Current Treatment
--- NOTE | 2018-12-13 08:00 | CA_ITS ---
PROCEDURE: 2-D M-mode and color Doppler study INDICATIONS FOR THE TEST: Chest pain COPD Heart Murmur Tobacco Smoking Palpitations Fatigue Syncope Edema Hypertension+Diabetes Mellitus Rheumatic Fever SOB+[place] Obesity+Hyperlipidemia+ Family History HD Additional History CHF, PACER, A FIB, CANCER PATIENT INFORMATION HEIGHT: 70 WEIGHT:245 GENDER: Male B/P:132/75 2-D/M-MODE INTERPRETATION: 2-D MEASUREMENTS OBSERVED VALUES IN CMS Right Ventricular Dimension (RVDd) 3.0 Interventricular Septum (Thickness)(IVsd) 1.7 Left Ventricular Internal Dimensions(LVIDd) 5.0 Left Ventricular Posterior Wall (Thickness)(LVPWd) 1.6 Aortic Root 3.9 Aortic Cusp Separation 2.2 Left Atrial Dimensions (LAD) 4.6 2D 1. Left atrium is moderately enlarged, left ventricle is normal size, there is moderate concentric left ventricular hypertrophy, visually estimated ejection fraction 55% with no regional wall motion abnormality, there is abnormal septal motion. 2. The right atrium and right ventricle are normal size and contractility, there is a pacemaker lead seen right atrium and right ventricle. 3. The aortic valve is thickened and calcified, leaflet continue to display mobility. 4. The mitral and tricuspid valve leaflets are minimally thickened. 5. The pulmonic valve is poorly present. 6. No significant pericardial effusion noted. DOPPLER INTERROGATION: Doppler interrogation of the aortic, mitral and tricuspid valvular presence of moderate mitral and mild tricuspid regurgitation, tricuspid regurgitation jet velocity is inadequate for calculation of the right ventricular systolic pressure, diastolic parameters are inconclusive. Inferior vena cava is not well visualized. CONCLUSION: 1. Moderately enlarged left atrium, normal left ventricular size, moderate concentric left ventricular hypertrophy, visually estimated ejection fraction 55% with no regional wall motion abnormality, there is abnormal septal motion, diastolic parameters are inconclusive. 2. Moderate mitral and mild tricuspid regurgitation 3. No significant pericardial effusion noted.
--- NOTE | 2018-12-13 08:40 | HMH.ACPN2 ---
Internal Medicine - PN: Subj *Date: 12/13/18 *Time: 07:55 Interval history: Pt is sitting up on the bedside this morning and reports he is ready to go home. He denies any pain, CP, or SOB. He ate a good breakfast and denies any GI upset. He rested well overnight and is feeling better this morning. Exam Vital signs and Labs for Last 24 Hours: Temp Pulse Resp BP Pulse Ox 98.1 F 72 12 164/73 H 93 L 12/13/18 00:00 12/13/18 06:00 12/13/18 06:00 12/13/18 06:00 12/13/18 06:00 Laboratory Results - last 24 hr 12/12/18 09:05: WBC 5.5, RBC 3.44 L, Hgb 9.4 L, Hct 27.7 L, MCV 80.4, MCH 27.2, MCHC 33.8, RDW 16.3, Plt Count 245, MPV 7.8, Neut % (Auto) 78.1, Lymph % (Auto) 12.0, [place] % (Auto) 6.0, Eos % (Auto) 3.4, Baso % (Auto) 0.6, Neut # (Auto) 4.3, Lymph # (Auto) 0.7, [place] # (Auto) 0.3, Eos # (Auto) 0.2, Baso # (Auto) 0.0 12/12/18 09:05: D-Dimer 3080 H* 12/12/18 09:05: Sodium 142, Potassium 3.7, Chloride 104, Carbon Dioxide 26, Anion Gap 15.7 H, BUN 19 H, Creatinine 1.40 H, Estimated Creat Clear 75, Estimated GFR 50 L, Est GFR ( Amer) 60, Glucose 100, Calcium 8.5, Total Bilirubin 0.6, AST 38 H, ALT 43, Alkaline Phosphatase 163 H, Troponin I 0.07 H, Total Protein 6.5, Albumin 3.1 L, Globulin 3.4 H, Albumin/Globulin Ratio 0.9 L 12/12/18 09:05: B-Natriuretic Peptide 959 H 12/12/18 09:36: Lactate 1.0 12/12/18 13:44: Troponin I 0.06 12/12/18 15:05: TSH 1.16 D 12/12/18 16:45: Troponin I 0.06 12/13/18 05:32: WBC 5.1, RBC 3.32 L, Hgb 8.8 L, Hct 27.2 L, MCV 81.9, MCH 26.6 L, MCHC 32.4, RDW 16.4, Plt Count 222, MPV 7.2 L, Neut % (Auto) 72.0, Lymph % (Auto) 16.2, [place] % (Auto) 6.6, Eos % (Auto) 4.5, Baso % (Auto) 0.7, Neut # (Auto) 3.7, Lymph # (Auto) 0.8, [place] # (Auto) 0.3, Eos # (Auto) 0.2, Baso # (Auto) 0.0 12/13/18 05:32: Sodium 144, Potassium 3.0 L, Chloride 105, Carbon Dioxide 30, Anion Gap 12.0, BUN 21 H, Creatinine 1.54 H, Estimated Creat Clear 65, Estimated GFR 45 L, Est GFR ( Amer) 54 L, Glucose 97, Calcium 8.2 L I & O for Last 24 hours: Intake & Output 12/10/18 12/11/18 12/12/18 12/13/18 11:59 11:59 11:59 11:59 Intake Total 1200 / 1200 Output Total 2900 / 2900 Balance -1700 / -1700 Weight 245 lb 238 lb 8 oz - Constitutional no acute distress - *Routine HEENT Exam Head: Present: normocephalic ENT: Present: mucous membranes moist - *Routine Respiratory Exam Present: CTA bilaterally - *Routine Cardiovascular Exam Present: RRR Comments: paced - *Routine Abdominal Exam Present: soft, normoactive bowel sounds. Absent: tenderness, distended, rebound, guarding, rigid - *Routine Extremities Exam Present: full ROM, pulses intact. Absent: calf tenderness Comments: 1+ BLE edema, bilateral ENA hose in place - *Routine Neurological Exam Present: alert, oriented X3, moving all extremities, normal speech Assessment and Plan (1) Congestive heart failure Current visit: Yes Status: Acute Qualifiers: Heart failure type: unspecified Heart failure chronicity: unspecified Qualified Code(s): I50.9 - Heart failure, unspecified Category: Medical Code(s): I50.9 - Heart failure, unspecified (2) Edema Current visit: Yes Status: Acute Category: Medical Code(s): R60.9 - Edema, unspecified (3) Elevated troponin Current visit: Yes Status: Acute Category: Medical Code(s): R74.8 - Abnormal levels of other serum enzymes (4) Pleural effusion Current visit: Yes Status: Acute Category: Medical Code(s): J90 - Pleural effusion, not elsewhere classified (5) Pericardial effusion Current visit: Yes Status: Acute Category: Medical Code(s): I31.3 - Pericardial effusion (noninflammatory) (6) Renal failure Current visit: No Status: Acute Category: Medical Code(s): N19 - Unspecified kidney failure (7) Status post left knee replacement Current visit: No Status: Acute Category: Surgical Code(s): Z96.652 - Presence of left artificial knee
--- NOTE | 2018-12-13 08:50 | P.PN_ITS ---
Internal Medicine - PN: Subj *Date: 12/13/18 *Time: 07:55 Interval history: Pt is sitting up on the bedside this morning and reports he is ready to go home. He denies any pain, CP, or SOB. He ate a good breakfast and denies any GI upset. He rested well overnight and is feeling better this morning. Exam Vital signs and Labs for Last 24 Hours: Temp Pulse Resp BP Pulse Ox 98.1 F 72 12 164/73 H 93 L 12/13/18 00:00 12/13/18 06:00 12/13/18 06:00 12/13/18 06:00 12/13/18 06:00 Laboratory Results - last 24 hr 12/12/18 09:05: WBC 5.5, RBC 3.44 L, Hgb 9.4 L, Hct 27.7 L, MCV 80.4, MCH 27.2, MCHC 33.8, RDW 16.3, Plt Count 245, MPV 7.8, Neut % (Auto) 78.1, Lymph % (Auto) 12.0, [place] % (Auto) 6.0, Eos % (Auto) 3.4, Baso % (Auto) 0.6, Neut # (Auto) 4.3, Lymph # (Auto) 0.7, [place] # (Auto) 0.3, Eos # (Auto) 0.2, Baso # (Auto) 0.0 12/12/18 09:05: D-Dimer 3080 H* 12/12/18 09:05: Sodium 142, Potassium 3.7, Chloride 104, Carbon Dioxide 26, Anion Gap 15.7 H, BUN 19 H, Creatinine 1.40 H, Estimated Creat Clear 75, Estimated GFR 50 L, Est GFR ( Amer) 60, Glucose 100, Calcium 8.5, Total Bilirubin 0.6, AST 38 H, ALT 43, Alkaline Phosphatase 163 H, Troponin I 0.07 H, Total Protein 6.5, Albumin 3.1 L, Globulin 3.4 H, Albumin/Globulin Ratio 0.9 L 12/12/18 09:05: B-Natriuretic Peptide 959 H 12/12/18 09:36: Lactate 1.0 12/12/18 13:44: Troponin I 0.06 12/12/18 15:05: TSH 1.16 D 12/12/18 16:45: Troponin I 0.06 12/13/18 05:32: WBC 5.1, RBC 3.32 L, Hgb 8.8 L, Hct 27.2 L, MCV 81.9, MCH 26.6 L , MCHC 32.4, RDW 16.4, Plt Count 222, MPV 7.2 L, Neut % (Auto) 72.0, Lymph % (Auto) 16.2, [place] % (Auto) 6.6, Eos % (Auto) 4.5, Baso % (Auto) 0.7, Neut # (Auto) 3.7, Lymph # (Auto) 0.8, [place] # (Auto) 0.3, Eos # (Auto) 0.2, Baso # (Auto) 0.0 12/13/18 05:32: Sodium 144, Potassium 3.0 L, Chloride 105, Carbon Dioxide 30, Anion Gap 12.0, BUN 21 H, Creatinine 1.54 H, Estimated Creat Clear 65, Estimated GFR 45 L, Est GFR ( Amer) 54 L, Glucose 97, Calcium 8.2 L I & O for Last 24 hours: Intake & Output 12/10/18 12/11/18 12/12/18 12/13/18 11:59 11:59 11:59 11:59 Intake Total 1200 / 1200 Output Total 2900 / 2900 Balance -1700 / -1700 Weight 245 lb 238 lb 8 oz - Constitutional no acute distress - *Routine HEENT Exam Head: Present: normocephalic ENT: Present: mucous membranes moist - *Routine Respiratory Exam Present: CTA bilaterally - *Routine Cardiovascular Exam Present: RRR Comments: paced - *Routine Abdominal Exam Present: soft, normoactive bowel sounds. Absent: tenderness, distended, rebound, guarding, rigid - *Routine Extremities Exam Present: full ROM, pulses intact. Absent: calf tenderness Comments: 1+ BLE edema, bilateral ENA hose in place - *Routine Neurological Exam Present: alert, oriented X3, moving all extremities, normal speech Assessment and Plan (1) Congestive heart failure Current visit: Yes Status: Acute Qualifiers: Heart failure type: unspecified Heart failure chronicity: unspecified Qualified Code(s): I50.9 - Heart failure, unspecified Category: Medical Code(s): I50.9 - Heart failure, unspecified (2) Edema Current visit: Yes Status: Acute Category: Medical Code(s): R60.9 - Edema, unspecified (3) Elevated troponin Current visit: Yes Status: Acute Category: Medical Code(s): R74.8 - Abnormal levels
--- NOTE | 2018-12-13 09:37 | PC.NURSE ---
asked md if he wanted a vq scan or ct with pe protocol and he stated because of kidney function he preferred a vq scan. also asked md if he needed to remain in stepdown at which he stated patient could come out of stepdown and remain on tele
--- NOTE | 2018-12-13 10:00 | NM_ITS ---
NM pul vent and perfuse CLINICAL INDICATION: Shortness of breath, elevated d-dimer ITS.REASON: elevated ddimer ORDERING PHYSICIAN: Aleksandar Johnson MD PATIENT AGE: 73 years Comparison: 12/13/2018 DOSE: 34.3 mCi technetium DTPA in haled, 7.74 mCi technetium MAA IV FINDINGS: No perfusion defects are evident. No mismatching defects apparent. There is some central clumping of the inhaled radiopharmaceutical which may be seen with COPD. IMPRESSION: No evidence of pulmonary embolus.
--- NOTE | 2018-12-13 10:52 | XR_ITS ---
XR chest 2V HISTORY: Shortness of breath, ITS.REASON: ELEVATED D-DIMER, VQ DONE TODAY ORDERING PHYSICIAN: Aleksandar Johnson MD PATIENT AGE: 73 years COMPARISON: 12/12/2018 FINDINGS: There is mild cardiomegaly without failure. There is bipolar pacer present from left subclavian approach. Bibasilar airspace disease has improved. There have does remain small bilateral effusions. No acute bony anomalies. IMPRESSION: Mild cardiomegaly. Small bilateral effusions with improvement in the bibasilar airspace disease
--- NOTE | 2018-12-13 14:31 | DIET.NUTRFU ---
Nutritional assessment completed by student neri under my supervision. Heart healthy diet discussed with patient.
[2018-12-13 14:50] LABS: Anion Gap 11.9 mEq/L (5-15); Blood Urea Nitrogen 25 mg/dL (7-18); Calcium 8.7 mg/dL (8.5-10.1); Carbon Dioxide 33 mmol/L (21.0-32.0); Chloride 103 mmol/L (98-107); Creatinine Clearance Estimated 58 mL/min (50-200); Creatinine,Serum 1.74 mg/dL (0.70-1.30); Estimated Glomerular Filt Rate 39 ml/min (>60); GFR (African American) 47 ML/MIN (>60); Glucose 135 mg/dL (74-106); Potassium 3.9 mmoL/L (3.5-5.1); Sodium 144 mmol/L (136-145)
--- NOTE | 2018-12-13 18:13 | PC.NURSE ---
patient has done well this shift. he has had no complaints ringing out as needed. he has walked in room independently. no complaints of pain. no shortness of breath noted. vss will continue to monitor.
--- NOTE | 2018-12-13 19:19 | PC.NURSE ---
report given to shaquille
[2018-12-14] VITALS: BP 147/55; PULSE 70; PULSE 71; RESP 16; TEMP 36.7; O2SAT 91
--- NOTE | 2018-12-14 01:39 | PC.NURSE ---
patient resting with eyes closed, continues to be room air, awakens easily and oriented. denies pain
--- NOTE | 2018-12-14 03:06 | PC.NURSE ---
patient resting with eyes closed at this time, has denied pain or nausea or soa. wanting to go home in the morning. ambulating independantly to restroom
[2018-12-14 04:00] VITALS: BP 143/69; PULSE 70; RESP 16; TEMP 36.6; O2SAT 92; BMI 33.8
--- NOTE | 2018-12-14 05:23 | PC.NURSE ---
patient continues to rest with eyes closed, denies pain or nausea. ambulates to the restroom independantly with walker.
[2018-12-14 06:08] LABS: Basophils % 0.5 % (0.1-2.0); Eosinophils # 0.3 K/mm3 (0.0-0.4); Eosinophils % 5.8 % (0.1-12.0); Hematocrit 27.5 % (42.0-52.0); Hemoglobin 9.1 g/dL (14.1-18.0); Lymphocytes % 19.5 % (10-50); Mean Corpuscular HGB Conc 33.2 g/dL (31.8-35.4); Mean Corpuscular Hemoglobin 26.8 pg (27.0-31.2); Mean Corpuscular Volume 80.7 fl (80-94); Mean Platelet Volume 7.2 fl (7.4-10.4); Monocytes # 0.3 K/mm3 (0.1-1.0); Monocytes % 6.8 % (1.7-9.3); Neutrophils # 3.3 K/mm3 (1.8-7.8); Neutrophils % 67.4 % (37.0-80.0); Platelet Count 233 K/mm3 (142-424); Red Blood Count 3.41 M/mm3 (4.60-6.20)
[2018-12-14 06:14] LABS: Anion Gap 13.8 mEq/L (5-15); Blood Urea Nitrogen 27 mg/dL (7-18); Calcium 8.2 mg/dL (8.5-10.1); Carbon Dioxide 29 mmol/L (21.0-32.0); Chloride 103 mmol/L (98-107); Creatinine Clearance Estimated 63 mL/min (50-200); Creatinine,Serum 1.57 mg/dL (0.70-1.30); Estimated Glomerular Filt Rate 44 ml/min (>60); GFR (African American) 53 ML/MIN (>60); Glucose 97 mg/dL (74-106); Sodium 143 mmol/L (136-145)
[2018-12-14 06:23] LABS: Potassium 2.8 mmoL/L (3.5-5.1)
--- NOTE | 2018-12-14 06:38 | PC.NURSE ---
dr. jacinto notified of critical potassium level of 2.8, new order received to increase potassium from 20 meq tid to 40 meq tid. read back and verified.
--- NOTE | 2018-12-14 07:32 | PC.NURSE ---
REPORT GIVEN TO Aamir OCAMPO
[2018-12-14 08:00] VITALS: BP 142/64; PULSE 70; PULSE 73; RESP 18; TEMP 36.5; O2SAT 92
[2018-12-14 08:15] VITALS: PULSE 70
[2018-12-14 08:17] LABS: Iron 28 ug/dL (38-169); Iron Saturation 12 % (15-55); UIBC 207 ug/dL (111-343)
--- NOTE | 2018-12-14 08:57 | HMH.ACPN2 ---
Internal Medicine - PN: Subj *Date: 12/14/18 *Time: 08:05 Interval history: Pt is sitting up on the bedside. He denies any complaints this morning and states he again rested very well overnight. He is eager to go home. Exam Vital signs and Labs for Last 24 Hours: Temp Pulse Resp BP Pulse Ox 97.7 F 73 18 142/64 H 92 L 12/14/18 08:00 12/14/18 08:00 12/14/18 08:00 12/14/18 08:00 12/14/18 08:00 Laboratory Results - last 24 hr 12/13/18 14:29: Sodium 144, Potassium 3.9 D, Chloride 103, Carbon Dioxide 33 H, Anion Gap 11.9, BUN 25 H, Creatinine 1.74 H, Estimated Creat Clear 58, Estimated GFR 39 L, Est GFR ( Amer) 47 L, Glucose 135 H D, Calcium 8.7 12/14/18 05:20: WBC 5.0, RBC 3.41 L, Hgb 9.1 L, Hct 27.5 L, MCV 80.7, MCH 26.8 L, MCHC 33.2, RDW 16.0, Plt Count 233, MPV 7.2 L, Neut % (Auto) 67.4, Lymph % (Auto) 19.5, [place] % (Auto) 6.8, Eos % (Auto) 5.8, Baso % (Auto) 0.5, Neut # (Auto) 3.3, Lymph # (Auto) 1.0, [place] # (Auto) 0.3, Eos # (Auto) 0.3, Baso # (Auto) 0.0 12/14/18 05:20: Sodium 143, Potassium 2.8 L* D, Chloride 103, Carbon Dioxide 29, Anion Gap 13.8, BUN 27 H, Creatinine 1.57 H, Estimated Creat Clear 63, Estimated GFR 44 L, Est GFR ( Amer) 53 L, Glucose 97 D, Calcium 8.2 L I & O for Last 24 hours: Intake & Output 12/11/18 12/12/18 12/13/18 12/14/18 11:59 11:59 11:59 11:59 Intake Total 1200 / 1200 1210 / 1210 Output Total 2900 / 2900 1200 / 1200 Balance -1700 / -1700 Weight 245 lb 238 lb 8 oz 236 lb Radiology Reports for the Last 24 Hours: 12/13/18 VQ scan: 1. No evidence of pulmonary embolus. 12/13/18 CXR: 1. Mild cardiomegaly with small bilateral pleural effusions with improvement in bilateral air space disease. - Constitutional no acute distress - *Routine HEENT Exam Head: Present: normocephalic ENT: Present: mucous membranes moist - *Routine Respiratory Exam Present: CTA bilaterally - *Routine Cardiovascular Exam Present: RRR Comments: paced - *Routine Abdominal Exam Present: soft, normoactive bowel sounds. Absent: tenderness, distended, rebound, guarding, rigid - *Routine Extremities Exam Present: full ROM, pulses intact. Absent: calf tenderness Comments: 1+ BLE edema L > R, bilateral ENA hose in place - *Routine Neurological Exam Present: alert, oriented X3, moving all extremities Assessment and Plan (1) Congestive heart failure Current visit: Yes Status: Acute Qualifiers: Heart failure type: unspecified Heart failure chronicity: unspecified Qualified Code(s): I50.9 - Heart failure, unspecified Category: Medical Code(s): I50.9 - Heart failure, unspecified (2) Edema Current visit: Yes Status: Acute Category: Medical Code(s): R60.9 - Edema, unspecified (3) Elevated troponin Current visit: Yes Status: Acute Category: Medical Code(s): R74.8 - Abnormal levels of other serum enzymes (4) Pleural effusion Current visit: Yes Status: Acute Category: Medical Code(s): J90 - Pleural effusion, not elsewhere classified (5) Pericardial effusion Current visit: Yes Status: Acute Category: Medical Code(s): I31.3 - Pericardial effusion (noninflammatory) (6) Renal failure Current visit: No Status: Acute Category: Medical Code(s): N19 - Unspecified kidney failure (7) Status post left knee replacement Current visit: No Status: Acute Category: Surgical Code(s): Z96.652 - Presence of left artificial knee joint (8) Anemia Current visit: No Status: Acute Category: Medical Code(s): D64.9 - Anemia, unspecified (9) History of permanent cardiac pacemaker placement Current visit: No Status: Chronic Category: Surgical Code(s): Z95.0 - Presence of cardiac pacemaker (10) Elevated d-dimer Current visit: Yes Status: Acute Category: Medical Code(s): R79.89 - Other specified abnormal findings of blood chemistry - Assessment and plan all Dx Assessment and Pl
--- NOTE | 2018-12-14 09:00 | P.PN_ITS ---
Internal Medicine - PN: Subj *Date: 12/14/18 *Time: 08:05 Interval history: Pt is sitting up on the bedside. He denies any complaints this morning and states he again rested very well overnight. He is eager to go home. Exam Vital signs and Labs for Last 24 Hours: Temp Pulse Resp BP Pulse Ox 97.7 F 73 18 142/64 H 92 L 12/14/18 08:00 12/14/18 08:00 12/14/18 08:00 12/14/18 08:00 12/14/18 08:00 Laboratory Results - last 24 hr 12/13/18 14:29: Sodium 144, Potassium 3.9 D, Chloride 103, Carbon Dioxide 33 H, Anion Gap 11.9, BUN 25 H, Creatinine 1.74 H, Estimated Creat Clear 58, Estimated GFR 39 L, Est GFR ( Amer) 47 L, Glucose 135 H D, Calcium 8.7 12/14/18 05:20: WBC 5.0, RBC 3.41 L, Hgb 9.1 L, Hct 27.5 L, MCV 80.7, MCH 26.8 L , MCHC 33.2, RDW 16.0, Plt Count 233, MPV 7.2 L, Neut % (Auto) 67.4, Lymph % (Auto) 19.5, [place] % (Auto) 6.8, Eos % (Auto) 5.8, Baso % (Auto) 0.5, Neut # (Auto) 3.3, Lymph # (Auto) 1.0, [place] # (Auto) 0.3, Eos # (Auto) 0.3, Baso # (Auto) 0.0 12/14/18 05:20: Sodium 143, Potassium 2.8 L* D, Chloride 103, Carbon Dioxide 29, Anion Gap 13.8, BUN 27 H, Creatinine 1.57 H, Estimated Creat Clear 63, Estimated GFR 44 L, Est GFR ( Amer) 53 L, Glucose 97 D, Calcium 8.2 L I & O for Last 24 hours: Intake & Output 12/11/18 12/12/18 12/13/18 12/14/18 11:59 11:59 11:59 11:59 Intake Total 1200 / 1200 1210 / 1210 Output Total 2900 / 2900 1200 / 1200 Balance -1700 / -1700 Weight 245 lb 238 lb 8 oz 236 lb Radiology Reports for the Last 24 Hours: 12/13/18 VQ scan: 1. No evidence of pulmonary embolus. 12/13/18 CXR: 1. Mild cardiomegaly with small bilateral pleural effusions with improvement in bilateral air space disease. - Constitutional no acute distress - *Routine HEENT Exam Head: Present: normocephalic ENT: Present: mucous membranes moist - *Routine Respiratory Exam Present: CTA bilaterally - *Routine Cardiovascular Exam Present: RRR Comments: paced - *Routine Abdominal Exam Present: soft, normoactive bowel sounds. Absent: tenderness, distended, rebound, guarding, rigid - *Routine Extremities Exam Present: full ROM, pulses intact. Absent: calf tenderness Comments: 1+ BLE edema L > R, bilateral ENA hose in place - *Routine Neurological Exam Present: alert, oriented X3, moving all extremities Assessment and Plan (1) Congestive heart failure Current visit: Yes Status: Acute Qualifiers: Heart failure type: unspecified Heart failure chronicity: unspecified Qualified Code(s): I50.9 - Heart failure, unspecified Category: Medical Code(s): I50.9 - Heart failure, unspecified (2) Edema Current visit: Yes Status: Acute Category: Medical Code(s): R60.9 - Edema, unspecified (3) Elevated troponin Current visit: Yes Status: Acute Category: Medical Code(s): R74.8 - Abnormal levels of other serum enzymes (4) Pleural effusion Current visit: Yes Status: Acute Category: Medical Code(s): J90 - Pleural effusion, not elsewhere classified (5) Pericardial effusion Current visit: Yes Status: Acute Category: Medical Code(s): I31.3 - Pericardial effusion (noninflammatory) (6) Renal failure Current visit: No Status: Acute Category: Medical Code(s): N19 - Unspecified kidney failure
[2018-12-14 12:00] VITALS: BP 147/60; PULSE 70; PULSE 71; RESP 17; TEMP 36.9; O2SAT 90
[2018-12-14 13:17] LABS: Anion Gap 13.2 mEq/L (5-15); Blood Urea Nitrogen 25 mg/dL (7-18); Calcium 8.6 mg/dL (8.5-10.1); Carbon Dioxide 32 mmol/L (21.0-32.0); Chloride 103 mmol/L (98-107); Creatinine Clearance Estimated 58 mL/min (50-200); Creatinine,Serum 1.72 mg/dL (0.70-1.30); Estimated Glomerular Filt Rate 39 ml/min (>60); GFR (African American) 47 ML/MIN (>60); Glucose 145 mg/dL (74-106); Potassium 4.2 mmoL/L (3.5-5.1); Sodium 144 mmol/L (136-145)
[2018-12-14 16:00] VITALS: BP 128/71; PULSE 99; RESP 17; TEMP 36.5; O2SAT 95
--- NOTE | 2018-12-14 16:30 | SW/DCPLANNER ---
Patient will discharge home later today. Patient information has been faxed to [facility] to resume home health services: correction and physical therapy. I will follow up with Dann from [facility].
--- NOTE | 2018-12-15 09:44 | HMH.DCSUM ---
General - General Admission date:: 12/12/18 Discharge date: 12/14/18 HPI HPI: Mr. Mattson is a 72-year-old white male patient who presented to the emergency room at [facility] and was admitted with evidence of congestive heart failure and elevated troponins. The patient had experienced a difficult course lately. He had known renal insufficiency. He underwent left knee replacement at [facility] 10/04/2018. He went into renal and respiratory failure after surgery and was on a ventilator and in the intensive care unit for nearly a week. He was discharged from [facility] on October 19 and went to [facility] for rehabilitation. He checked himself out of [facility] on 26 October. He was seen in follow-up in the office in [facility] and found to be anemic. Transfusion with packed red blood cells was arranged. Prior to his presentation in the emergency room this weekend the patient was seen Thursday by Dr. Crowley 12/10/2018 in the office of [facility]. He was complaining of shortness of breath at that point. Hemoglobin was 8.8 in the office white blood cell count was only 6000. Hydrochlorothiazide 12.5 mg p.o. daily was added to his regimen at that point but the shortness of breath progressed through the weekend and thus resulted in his presentation in the emergency room. Also significant in the picture was noted pacemaker placement April 19, [address] Freeman. His last heart catheterization was September 2017. Also to note excision of right sided grade 1 meningioma [facility] March 06, 2017. Hospital Course Hospital Course: On admission patient was diuresed with Lasix twice daily. He responded well with weight loss and improvement in breathing. He denied chest pain. D-dimer was 3080 with negative VQ scan. Renal function was monitored. Blood cultures were negative at 48 hours. 12/14/2018 he continued to feel better. Potassium was increased due to hypokalemia with diuresis. He was eager to go home. He was discharged home stable exam his condition with follow-up on 12/20/[address] Johnson. Objective Vital signs: Temp Pulse Resp BP Pulse Ox 97.7 F 99 H 17 128/71 95 12/14/18 16:00 12/14/18 16:00 12/14/18 16:00 12/14/18 16:00 12/14/18 16:00 Results Completed studies during hospitalization [Text1]: 12/12/2018 chest x-ray IMPRESSION: Patchy bibasilar airspace disease with small bilateral effusions 12/12/[address] IMPRESSION: 1. Medium sized bilateral pleural effusion with compressive atelectatic changes with possible superimposed pneumonia in the left lower lobe 2. 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 3. Extensive coronary artery calcification consistent with coronary artery disease 12/13/2018 echocardiogram CONCLUSION: 1. Moderately enlarged left atrium, normal left ventricular size, moderate concentric left ventricular hypertrophy, visually estimated ejection fraction 55% with no regional wall motion abnormality, there is abnormal septal motion, diastolic parameters are inconclusive. 2. Moderate mitral and mild tricuspid regurgitation 3. No significant pericardial effusion noted. 12/13/2018 ventilation/perfusion scan MPRESSION: No evidence of pulmonary embolus. repeat chest x-ray IMPRESSION: Was recently mild cardiomegaly. Small bilateral effusions with improvement in the bibasilar airspace disease Laboratory Tests 12/12/18 12/12/18 12/12/18 09:05 09:05 09:05 WBC 5.5 RBC 3.44 L Hgb 9.4 L Hct 27.7 L Plt Count 245 D-Dimer 3080 H* Sodium 142 Potassium 3.7 Chloride 104 Carbon Dioxide 26 Anion Gap 15.7 H BUN 19 H Creatinine 1.40 H Estimated GFR 50 L Glucose 100 Lactate Calcium 8.5 Total Bilirubin 0.6 AST 38 H ALT 43 Alkaline Phosphatase 163 H Troponin I 0.07 H B-Natriuretic Peptide Total Protein 6.5 Albu
--- NOTE | 2018-12-15 09:48 | P.DS_ITS ---
General - General Admission date:: 12/12/18 Discharge date: 12/14/18 HPI HPI: Mr. Mattson is a 72-year-old white male patient who presented to the emergency room at [facility] and was admitted with evidence of congestive heart failure and elevated troponins. The patient had experienced a difficult course lately. He had known renal insufficiency. He underwent left knee replacement at [facility] 10/04/2018. He went into renal and respiratory failure after surgery and was on a ventilator and in the intensive care unit for nearly a week. He was discharged from [facility] on October 19 and went to [facility] for rehabilitation. He checked himself out of [facility] on 26 October. He was seen in follow-up in the office in [facility] and found to be anemic. Transfusion with packed red blood cells was arranged. Prior to his presentation in the emergency room this weekend the patient was seen Thursday by Dr. Crowley 12/10/2018 in the office of [facility]. He was complaining of shortness of breath at that point. Hemoglobin was 8.8 in the office white blood cell count was only 6000. Hydrochlorothiazide 12.5 mg p.o. daily was added to his regimen at that point but the shortness of breath progressed through the weekend and thus resulted in his presentation in the emergency room. Also significant in the picture was noted pacemaker placement April 19, [address] Freeman. His last heart catheterization was September 2017. Also to note excision of right sided grade 1 meningioma [facility] March 06, 2017. Hospital Course Hospital Course: On admission patient was diuresed with Lasix twice daily. He responded well with weight loss and improvement in breathing. He denied chest pain. D-dimer was 3080 with negative VQ scan. Renal function was monitored. Blood cultures were negative at 48 hours. 12/14/2018 he continued to feel better. Potassium was increased due to hypokalemia with diuresis. He was eager to go home. He was discharged home stable exam his condition with follow-up on 12/20/[address] Johnson. Objective Vital signs: Temp Pulse Resp BP Pulse Ox 97.7 F 99 H 17 128/71 95 12/14/18 16:00 12/14/18 16:00 12/14/18 16:00 12/14/18 16:00 12/14/18 16:00 Results Completed studies during hospitalization [Text1]: 12/12/2018 chest x-ray IMPRESSION: Patchy bibasilar airspace disease with small bilateral effusions 12/12/[address] IMPRESSION: 1. Medium sized bilateral pleural effusion with compressive atelectatic changes with possible superimposed pneumonia in the left lower lobe 2. 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 3. Extensive coronary artery calcification consistent with coronary artery disease 12/13/2018 echocardiogram CONCLUSION: 1. Moderately enlarged left atrium, normal left ventricular size, moderate concentric left ventricular hypertrophy, visually estimated ejection fraction 55% with no regional wall motion abnormality, there is abnormal septal motion, diastolic parameters are inconclusive. 2. Moderate mitral and mild tricuspid regurgitation 3. No significant pericardial effusion noted. 12/13/2018 ventilation/perfusion scan MPRESSION: No evidence of pulmonary embolus. repeat chest x-ray IMPRESSION: Was recently mild cardiomegaly. Small bilateral effusions with improvement in the bibasilar airspace disease Laboratory Tests
[2018-12-17 06:18] LABS: Vitamin B12 471 pg/mL (232-1245)
[2018-12-17 06:19] LABS: Folate >20.0 ng/mL (>3.0)
== END 2018-12-14 17:16 | disposition home or self-care (01) | DRG 292 ==
LOC: ER 10:27 → 2ND 10:36
PROVIDERS: Admitting Provider Family Medicine; Emergency Provider Emergency Medicine Emergency Medical Services; PCP Family Medicine; Visit Provider Family Medicine
DX: I11.0 Hypertensive heart disease with heart failure (principal); I31.3 Pericardial effusion (noninflammatory); I50.9 Heart failure, unspecified; I48.91 Unspecified atrial fibrillation; Z95.0 Presence of cardiac pacemaker; E03.9 Hypothyroidism, unspecified; Z87.891 Personal history of nicotine dependence; Z96.652 Presence of left artificial knee joint; D64.9 Anemia, unspecified
CPT/HCPCS: 36415; 71045; 71046; 71250; 78582; 80048; 80053; 82607; 82746; 83540; 83550; 83605; 83880; 84443; 84484; 85025; 85378; 87040; 93005; 93306; 96372; 96374; 99284; A9540; A9567

== ENCOUNTER → 2018-12-20 11:33 | Outpatient (CLI) | payer MEDICARE, BC, SELFPAY ==
--- NOTE | 2018-12-20 11:38 | XR_ITS ---
XR knee LT 3V HISTORY: Follow-up knee replacement ITS.REASON: A/P KNEE REPLACEMENT ORDERING PHYSICIAN: Sujata Nayak APRN PATIENT AGE: 73 years COMPARISON: 04/01/2012 FINDINGS: There has been a total knee replacement. There is good alignment without evidence of orthopedic complication. IMPRESSION: Status post total knee replacement
== END ==
PROVIDERS: PCP Nurse Practitioner Family; Visit Provider Nurse Practitioner Family
DX: Z96.659 Presence of unspecified artificial knee joint (principal)
CPT/HCPCS: 73562

== ENCOUNTER → 2019-01-04 10:10 | Outpatient (CLI) | payer MEDICARE, BC, SELFPAY ==
[2019-01-04 11:53] LABS: Blood Urea Nitrogen 43 mg/dL (7-18); Calcium 8.8 mg/dL (8.5-10.1); Chloride 97 mmol/L (98-107); Creatinine,Serum 1.98 mg/dL (0.70-1.30); Estimated Glomerular Filt Rate 33 ml/min (>60); GFR (African American) 40 ML/MIN (>60); Glucose 88 mg/dL (74-106); Potassium 4.1 mmoL/L (3.5-5.1); Sodium 137 mmol/L (136-145)
[2019-01-04 12:44] LABS: Anion Gap 13.1 mEq/L (5-15); Carbon Dioxide 31 mmol/L (21.0-32.0)
== END ==
PROVIDERS: Visit Provider Nurse Practitioner Family
DX: N28.9 Disorder of kidney and ureter, unspecified (principal)
CPT/HCPCS: 36415; 80048

== ENCOUNTER → 2019-06-22 08:50 | Outpatient (CLI) | payer MEDICARE, BC, SELFPAY ==
[2019-06-22 08:56] LABS: Microscopic, Urine URINE MICROSCOPIC (MICROSCOPIC)
[2019-06-22 09:49] LABS: Basophils # 0.1 K/mm3 (0-0.2); Basophils % 0.9 % (0.1-2.0); Eosinophils # 0.3 K/mm3 (0.0-0.4); Eosinophils % 4.2 % (0.1-12.0); Hematocrit 28.7 % (42.0-52.0); Hemoglobin 8.8 g/dL (14.1-18.0); Lymphocytes % 12.7 % (10-50); Mean Corpuscular HGB Conc 30.7 g/dL (31.8-35.4); Mean Corpuscular Hemoglobin 26.6 pg (27.0-31.2); Mean Corpuscular Volume 86.7 fl (80-94); Mean Platelet Volume 7.9 fl (7.4-10.4); Monocytes # 0.4 K/mm3 (0.1-1.0); Monocytes % 5.3 % (1.7-9.3); Neutrophils # 5.9 K/mm3 (1.8-7.8); Platelet Count 312 K/mm3 (142-424); Red Blood Count 3.31 M/mm3 (4.60-6.20); Red Cell Distribution Width 15.3 % (11.5-17.5); White Blood Count 7.6 K/mm3 (4.8-10.8)
[2019-06-22 10:59] LABS: Appearance,Urine CLEAR (Clear); Bilirubin,Urine Negative (Negative); Blood, Urine Negative (Negative); Color,Urine YELLOW (Yellow); Glucose,Urine (UA) Negative (Negative); Ketones,Urine Negative (Negative); Leukocyte Esterase,Urine Negative (Negative); Nitrate,Urine Negative (Negative); Protein,Urine Negative (Negative); Urobilinogen,Urine 0.2 EU/dl (0.2)
[2019-06-22 11:30] LABS: Hyaline Casts,Urine Occasional #/lpf (0); RBC,Urine Occasional #/hpf (0-3); Squamous Epithelial Cell,Urine Occasional #/hpf (0-5)
[2019-06-22 11:33] LABS: Creatinine,Urine Random 35 mg/dL (20-320); Total Protein,Urine Random 6.1 mg/dL (0.0-11.9)
[2019-06-22 12:22] LABS: Albumin Level 3.2 gm/dL (3.4-5.0); Anion Gap 14.1 mEq/L (5-15); Blood Urea Nitrogen 38 mg/dL (7-18); Calcium 8.9 mg/dL (8.5-10.1); Carbon Dioxide 30 mmol/L (21.0-32.0); Chloride 104 mmol/L (98-107); Creatinine,Serum 1.72 mg/dL (0.70-1.30); Estimated Glomerular Filt Rate 39 ml/min (>60); GFR (African American) 47 ML/MIN (>60); Glucose 82 mg/dL (74-106); Phosphorous 4.8 mg/dL (2.4-4.9); Potassium 4.1 mmoL/L (3.5-5.1); Sodium 144 mmol/L (136-145)
== END ==
PROVIDERS: Visit Provider Internal Medicine Nephrology
DX: N18.3 Chronic kidney disease, stage 3 (moderate) (principal)
CPT/HCPCS: 36415; 80069; 81001; 82570; 84155; 85025

== ENCOUNTER → 2019-06-29 11:12 | Outpatient (POV) | payer MEDICARE, BC, SELFPAY | PROVIDERS: Visit Provider Internal Medicine Nephrology | DX: Z00.00 Encounter for general adult medical examination without abnormal findings (principal) ==

== ENCOUNTER → 2019-10-24 13:46 | Outpatient (CLI) | payer MEDICARE, BC, SELFPAY | PROVIDERS: Visit Provider Family Medicine | DX: E87.6 Hypokalemia (principal) | CPT/HCPCS: 36415; 84132 ==

== ENCOUNTER → 2019-12-06 09:08 | Outpatient (CLI) | payer MEDICARE, BC, SELFPAY ==
[2019-12-06 09:30] LABS: Basophils # 0.1 K/mm3 (0-0.2); Basophils % 1.1 % (0.1-2.0); Eosinophils # 0.2 K/mm3 (0.0-0.4); Hematocrit 32.2 % (42.0-52.0); Lymphocytes # 1.1 K/mm3 (0.7-4.5); Lymphocytes % 16.2 % (10-50); Mean Corpuscular HGB Conc 34.2 g/dL (31.8-35.4); Mean Corpuscular Hemoglobin 28.1 pg (27.0-31.2); Mean Corpuscular Volume 82.3 fl (80-94); Mean Platelet Volume 7.8 fl (7.4-10.4); Monocytes # 0.3 K/mm3 (0.1-1.0); Neutrophils # 4.9 K/mm3 (1.8-7.8); Neutrophils % 74.7 % (37.0-80.0); Platelet Count 200 K/mm3 (142-424); Red Blood Count 3.92 M/mm3 (4.60-6.20); Red Cell Distribution Width 15.3 % (11.5-17.5); White Blood Count 6.5 K/mm3 (4.8-10.8)
[2019-12-06 10:55] LABS: Albumin Level 4.1 g/dl (3.5-5.0); Anion Gap 8.6 mEq/L (5-15); Blood Urea Nitrogen 43 mg/dl (9-20); Calcium 9.5 mg/dl (8.4-10.2); Carbon Dioxide 33 mmol/L (22.0-30.0); Chloride 101 mmol/L (98-107); Estimated Glomerular Filt Rate 46 ml/min (>60); GFR (African American) 56 ML/MIN (>60); Glucose 98 mg/dl (74-100); Potassium 3.6 mmoL/L (3.5-5.1); Sodium 139 mmol/L (136-145)
[2019-12-07 14:34] LABS: Vitamin D 25 Hydroxy 32.2 ng/mL (30.0-100.0)
== END ==
PROVIDERS: Visit Provider Internal Medicine Nephrology
DX: N18.3 Chronic kidney disease, stage 3 (moderate) (principal)
CPT/HCPCS: 36415; 80069; 82652; 85025

== ENCOUNTER 2020-01-08 12:26 | Emergency (ER) | payer MEDICARE, BC, SELFPAY ==
[2020-01-08 12:28] VITALS: BP 102/50; PULSE 70; RESP 18; TEMP 36.7; O2SAT 95; BMI 35.2
--- NOTE | 2020-01-08 12:40 | HMH.EDGENADL ---
ED Disposition Clinical Impression: Dehydration, Acute kidney injury, Hypokalemia Diarrhea Qualifiers: Diarrhea type: presumed infectious Qualified Code(s): R19.7 - Diarrhea, unspecified Disposition: Home, Self-Care Condition on Discharge: Fair Instructions: DI for Diarrhea and Traveler's Diarrhea -- Adult, DI for Dehydration -- Adult, DI for Acute Kidney Injury, DI for Hypokalemia Additional Instructions: See Dr. Johnson in the office tomorrow for further evaluation and instructions. Drink plenty of fluids. Outpatient diarrhea sample, return sample to lab for testing and follow-up results with Dr. Johnson tomorrow. Referrals: Aleksandar Johnson MD [Primary Care Provider] - - Critical Care Critical Care Time: No Attestation: On , the high probability of a clinically significant, sudden or life threatening deterioration of the following system(s) required my full and direct attention, intervention and personal management. The time I documented below is in addition to time spent performing reported procedures but includes the following listed in this critical care notation. Medical Decision Making - Medical Records Medical records reviewed: Yes: I reviewed the patient's medical records. - Héctor Inquiry Pt receiving controlled substance: No Vital Signs: 01/08/20 12:28 Temperature 98.1 F Temperature Source Oral Pulse Rate [Right] 70 Respiratory Rate 18 Blood Pressure [Right Arm] 102/50 L Blood Pressure Mean [Right Arm] 67 02 Sat by Pulse Oximetry 95 - Lab Data Lab results reviewed: Yes: I reviewed the patient's lab results. Lab Results 01/08/20 12:58: WBC 7.5, RBC 3.68 L, Hgb 10.2 L, Hct 30.5 L, MCV 82.7, MCH 27.8, MCHC 33.6, RDW 14.7, Plt Count 197, MPV 7.8, Neut % (Auto) 77.7, Lymph % (Auto) 14.0, Faulk % (Auto) 4.4, Eos % (Auto) 3.3, Baso % (Auto) 0.6, Neut # (Auto) 5.9, Lymph # (Auto) 1.1, Faulk # (Auto) 0.3, Eos # (Auto) 0.3, Baso # (Auto) 0.1 01/08/20 12:58: Sodium 135 L, Potassium 2.8 L*, Chloride 99, Carbon Dioxide 24, Anion Gap 12.8, BUN 56 H, Creatinine 2.60 H, Estimated Creat Clear 39, Estimated GFR 24 L, Est GFR ( Amer) 29 L, Glucose 122 H, Calcium 8.8, Total Bilirubin 0.4, AST 89 H, ALT 119 H, Alkaline Phosphatase 250 H, Total Protein 6.8, Albumin 3.7, Globulin 3.1, Albumin/Globulin Ratio 1.2, Amylase 89, Lipase 48 01/08/20 12:58: Lactate 1.8 Result diagrams: 01/08/20 12:58 01/08/20 12:58 Orders (Tests/Meds): ED MEDICATIONS Discontinued Medications Generic Name Dose Route Start Last Admin Trade Name Freq PRN Reason Stop Dose Admin Potassium Chloride 40 meq 01/08/20 13:18 01/08/20 13:47 Klor-Con 20meq Tablet PO 01/08/20 13:19 40 meq ONCE ONE Administration Sodium Chloride 500 ml 01/08/20 13:18 Sod Chlor 0.9% 1000ml Bag IV 01/08/20 13:19 BOLUS ONE ORDERS Category Date Time Status Diarrhea 6-11 Panel, Cdiff PCR Stat Lab 01/08/20 12:53 Ordered Hepatitis Panel (4) Stat Lab 01/08/20 12:58 Received Urinalysis and Microscopic Stat Lab 01/08/20 12:44 Ordered Blood Culture Stat Micro 01/08/20 12:58 Received - Reevaluation(s) Time: 13:54 Reevaluation #1: Patient states that he wants to leave. He has not received IV fluids yet and does not want to receive IV fluids. He did take oral potassium. I discussed his acute kidney injury, likely due to dehydration from diarrhea. Discussed his hypokalemia. He says he is on potassium tablets, 2 twice a day. He refuses to stay for any further treatment, has not produced a diarrhea sample in the emergency department. He is sitting upright on his bed, fully clothed, drinking a soda. He says that he will see Dr. Johnson tomorrow. General Adult HPI - General Stated complaint: low grade fever diarrhea Time Seen by Provider: 01/08/20 12:52 - History of Present Illness HPI narrative: 3 to 4-day history of diarrhea without blood. Low-grade fevers. No vomiting. No abdominal pain. No known
[2020-01-08 13:12] LABS: Eosinophils # 0.3 K/mm3 (0.0-0.4); Neutrophils % 77.7 % (37.0-80.0)
[2020-01-08 13:14] LABS: Chloride 99 mmol/L (98-107); Sodium 135 mmol/L (136-145)
[2020-01-08 13:16] LABS: Amylase 89 U/L (30-110); Blood Urea Nitrogen 56 mg/dl (9-20); Creatinine Clearance Estimated 39 mL/min (50-200); Estimated Glomerular Filt Rate 24 ml/min (>60); GFR (African American) 29 ML/MIN (>60)
[2020-01-08 13:17] LABS: Alanine Aminotransferase 119 U/L (12-78); Albumin Level 3.7 g/dl (3.5-5.0); Albumin/Globulin Ratio 1.2 (1.1-1.8); Alkaline Phosphatase 250 U/L (38-126); Aspartate Amino Transferase 89 U/L (17-59); Basophils # 0.1 K/mm3 (0-0.2); Basophils % 0.6 % (0.1-2.0); Bilirubin,Total 0.4 mg/dl (0.2-1.3); Calcium 8.8 mg/dl (8.4-10.2); Carbon Dioxide 24 mmol/L (22.0-30.0); Eosinophils % 3.3 % (0.1-12.0); Globulin 3.1 g/dL (1.3-3.2); Glucose 122 mg/dl (74-100); Hematocrit 30.5 % (42.0-52.0); Hemoglobin 10.2 g/dL (14.1-18.0); Lipase 48 U/L (23-300); Lymphocytes # 1.1 K/mm3 (0.7-4.5); Mean Corpuscular HGB Conc 33.6 g/dL (31.8-35.4); Mean Corpuscular Hemoglobin 27.8 pg (27.0-31.2); Mean Corpuscular Volume 82.7 fl (80-94); Mean Platelet Volume 7.8 fl (7.4-10.4); Monocytes # 0.3 K/mm3 (0.1-1.0); Monocytes % 4.4 % (1.7-9.3); Neutrophils # 5.9 K/mm3 (1.8-7.8); Platelet Count 197 K/mm3 (142-424); Potassium 2.8 mmoL/L (3.5-5.1); Red Blood Count 3.68 M/mm3 (4.60-6.20); Red Cell Distribution Width 14.7 % (11.5-17.5); Total Protein,Serum 6.8 g/dl (6.3-8.2); White Blood Count 7.5 K/mm3 (4.8-10.8)
--- NOTE | 2020-01-08 13:17 | PC.NURSE ---
potassium of 2.8 reported by lab. notified
[2020-01-08 13:18] LABS: Lactic Acid 1.8 mmol/L (0.7-2.1)
[2020-01-08 13:42] LABS: Anion Gap 12.8 mEq/L (5-15)
[2020-01-08 14:03] VITALS: BP 121/78; PULSE 78; RESP 16; TEMP 36.7; O2SAT 98
[2020-01-10 05:08] LABS: Hep A Ab, IgM Negative (Negative); Hepatitis B Core Antibody IgM Negative (Negative); Hepatitis B Surface Antigen Negative (Negative)
[2020-01-10 06:52] LABS: Hepatitis C Antibody <0.1 s/co ratio (0.0-0.9)
== END 2020-01-08 14:04 | disposition home or self-care (01) ==
PROVIDERS: Emergency Provider Emergency Medicine; PCP Family Medicine
DX: E86.0 Dehydration (principal); N17.9 Acute kidney failure, unspecified; E87.6 Hypokalemia; I10 Essential (primary) hypertension; E78.5 Hyperlipidemia, unspecified; E04.9 Nontoxic goiter, unspecified; F41.8 Other specified anxiety disorders; I48.20 Chronic atrial fibrillation, unspecified; K21.9 Gastro-esophageal reflux disease without esophagitis; Z87.891 Personal history of nicotine dependence; Z79.899 Other long term (current) drug therapy
CPT/HCPCS: 80053; 80074; 82150; 83605; 83690; 85025; 87040; 99282; 99283

== ENCOUNTER → 2020-03-22 09:38 | Outpatient (CLI) | payer MEDICARE, BC, SELFPAY ==
[2020-03-22 11:48] LABS: Coronavirus 19 IgG Antibody Negative (Negative); Coronavirus 19 IgM Antibody Negative (Negative)
== END ==
PROVIDERS: Visit Provider Surgery
DX: Z01.84 Encounter for antibody response examination (principal)
CPT/HCPCS: 86328

== ENCOUNTER 2020-03-23 06:07 | Day surgery (SDC) | payer MEDICARE, BC, SELFPAY ==
[2020-03-20 13:57] VITALS: BMI 34.9
[2020-03-23] VITALS (10 sets, daily range): BP systolic 107–140; BP diastolic 49–75; PULSE 70–72; RESP 12–18; TEMP 36.2–36.9; O2SAT 93–98
--- NOTE | 2020-03-23 07:07 | P.PN_ITS ---
[facility] Anesthesia Checklist - Patient Identification Patient Identification: Arm Band - Structural Data Admitted From: Home Planned Operative Procedure/s: I&D Perianal Abscess Consent for Planned Operative Procedure(s) Verified: Yes Verified Documents: Surgical Consent, History and Physical - NPO Status Verified Time NPO: 00:00 - Additional verifications Anesthesia Reactions: No Hx Blood Transfusions: Yes (2019) Blood Transfusion Reaction: No - Airway Assessment C-Spine Mobility Assessed: Yes (mp2) TMJ Mobility Assessed: Yes Dentition: Poor Dentition - Neurological Assessment Level of Consciousness: Awake, Alert - Anesthesia Plan Anesthesia Risk discussed: Yes Anesthesia Plan: Verified ASA Class: III Anesthesia Type: General [facility] History I have reviewed the patient's past medical history: Yes Medical History: Reports:: Anxiety, Atrial Fibrillation, Cancer (skin cancer), Congestive Heart Failure, Depression, Gastroesophageal Reflux Disease(GERD), Hiatal Hernia, Hyperlipidemia, Hypertension, Internal Pacemaker, MRSA, Renal Disease Denies:: Diabetes Mellitus Type 1, Diabetes Mellitus Type 2, Palpitations, Seizures *Have you ever received a pneumonia vaccine?: Yes *Have you received a flu vaccine this season?: Yes Other Medical History: Reports: Anemia, Arthritis, Hypothyroidism. Denies: Blood Transfusion Reaction Anesthesia experience/problems:: nac Laterality Cases: Left: Arthroscopy Hip, Arthroscopy Knee, Total Hip Replacement Other Surgeries: Yes: Cancer Surgery, Cardiac Catheterization, Colonoscopy, Hernia Repair, Pacemaker, Thyroidectomy, Other (Parathyroidectomy 1983, excision right sided gr 1 meningioma 03/06/2017) Amputation: No Fractures: No - *Social History Smoking Status: Former smoker Tobacco Type: cigarettes Alcohol Intake: never Substance Use Type: denies use *Occupational Status:: retired, disabled Housing: house Household Members: spouse *Travel in the last 8 weeks: None - Psychiatric History Pschychiatric History:: Reports:: Anxiety, Depression Family Hx:: No significant family history
--- NOTE | 2020-03-23 08:08 | P.OP_ITS ---
Date of procedure: 03/23/20 Pre-op Diagnosis:: Perianal abscess Post-op Diagnosis:: Chronic perianal abscess with fistula formation Procedure performed:: Incision and drainage of complex right perianal abscess with placement of setons (x2) Surgeon:: Tim Galicia MD DELICATE [employer] PRESSER:: Fermín Ibrahim Anesthesia: LMA Estimated blood loss (mL): 15 Operative findings:: Complex chronic right perianal abscess with partially transsphincteric right lateral fistula and intersphincteric right posterior fistula Operative note:: After informed consent was obtained the patient was taken to the operating room and placed in the supine position. General anesthesia with laryngeal mask airway was achieved. The patient was then transferred to a modified lithotomy position. The perianal region was prepped and draped in a sterile fashion. Palpation and inspection revealed a chronic right lateral perianal abscess with concomitant fistulous tract that was deemed to be partially transsphincteric. An additional fistulous tract with chronic abscess was noted along the right posterior margin. Careful evaluation and probe manipulation revealed the posterior opening to have a concomitant intersphincteric tract. A small amount of purulent fluid/necrotic tissue/granulation tissue was excised with electrocautery along the exit sites . 3 separate 0 silk sutures were then placed through each tract and secured to create a cutting seton . Dressings were applied and the patient was transferred to recovery in stable condition after removal of his laryngeal mask airway. Condition: stable Disposition: PACU Specimens:: None Complications:: No immediate
--- NOTE | 2020-03-23 08:16 | P.PN_ITS ---
[facility] Anesthesia Record Part I Intake, IV Amount: 500 Estimated blood loss (mL): 0 Urine output (mL): 0 Blood Pressure: 107/69 SaO2: 93 Pulse Rate: 70 Respiratory Rate: 12 Temperature: 97.5 F Patient is:: Awake, Stable Stable to PACU at:: 08:15
--- NOTE | 2020-03-26 09:57 | P.PN_ITS ---
[facility] Anesthesia Record Part II Discharge Time: 08:45 Destination: Surgical Day Care (OP Surgery) PACU nurse assessment reviewed?: Yes Patient Condition:: Good Anesthesia Complications:: None Swallowing reflex intact?: Yes Cyanosis?: No Blood Pressure: 129/52 Pulse Rate: 72 Temperature: 97.5 F Mental Status: Alert & Oriented Pain level:: 2 Nausea and/or vomitting:: None Intake, IV Amount: 0 (Normovolemic)
[2020-03-26 09:58] VITALS: BP 129/52; PULSE 72; TEMP 36.4
== END 2020-03-23 09:35 | disposition home or self-care (01) ==
LOC: OR 06:09
PROVIDERS: PCP Family Medicine; Visit Provider Surgery
DX: K61.0 Anal abscess; F41.9 Anxiety disorder, unspecified; I48.91 Unspecified atrial fibrillation; I50.9 Heart failure, unspecified; F32.9 Major depressive disorder, single episode, unspecified; K21.9 Gastro-esophageal reflux disease without esophagitis; I11.0 Hypertensive heart disease with heart failure; E78.5 Hyperlipidemia, unspecified; Z95.0 Presence of cardiac pacemaker; N28.9 Disorder of kidney and ureter, unspecified; Z85.828 Personal history of other malignant neoplasm of skin; Z86.14 Personal history of Methicillin resistant Staphylococcus aureus infection
CPT/HCPCS: 46050; 96374; J1956; J2405

== ENCOUNTER → 2020-07-11 10:03 | Outpatient (CLI) | payer MEDICARE, BC, SELFPAY ==
[2020-07-11 10:45] LABS: Basophils # 0.1 K/mm3 (0-0.2); Basophils % 0.8 % (0.1-2.0); Eosinophils # 0.1 K/mm3 (0.0-0.4); Eosinophils % 2.1 % (0.1-12.0); Hematocrit 35.3 % (42.0-52.0); Hemoglobin 11.9 g/dL (14.1-18.0); Lymphocytes # 1.1 K/mm3 (0.7-4.5); Lymphocytes % 17.6 % (10-50); Mean Corpuscular HGB Conc 33.7 g/dL (31.8-35.4); Mean Corpuscular Hemoglobin 27.8 pg (27.0-31.2); Mean Corpuscular Volume 82.5 fl (80-94); Mean Platelet Volume 7.7 fl (7.4-10.4); Monocytes # 0.4 K/mm3 (0.1-1.0); Monocytes % 6.4 % (1.7-9.3); Neutrophils # 4.6 K/mm3 (1.8-7.8); Neutrophils % 73.1 % (37.0-80.0); Platelet Count 202 K/mm3 (142-424); Red Blood Count 4.27 M/mm3 (4.60-6.20); Red Cell Distribution Width 15.4 % (11.5-17.5); White Blood Count 6.2 K/mm3 (4.8-10.8)
[2020-07-11 11:09] LABS: Creatinine,Urine Random 57 mg/dL (Not Estab.)
[2020-07-11 11:13] LABS: Microalbumin < 6.000 mg/L (0-16.7)
[2020-07-11 11:45] LABS: Albumin Level 3.9 g/dl (3.5-5.0); Anion Gap 12.9 mEq/L (5-15); Blood Urea Nitrogen 37 mg/dl (9-20); Calcium 9.6 mg/dl (8.4-10.2); Carbon Dioxide 33 mmol/L (22.0-30.0); Chloride 98 mmol/L (98-107); Estimated Glomerular Filt Rate 42 ml/min (>60); GFR (African American) 51 ML/MIN (>60); Glucose 72 mg/dl (74-100); Phosphorous 3.8 mg/dl (2.5-4.5); Potassium 3.9 mmoL/L (3.5-5.1); Sodium 140 mmol/L (136-145); Uric Acid 8.5 mg/dl (3.5-8.5)
== END ==
PROVIDERS: Visit Provider Internal Medicine Nephrology
DX: N18.30 Chronic kidney disease, stage 3 unspecified (principal)
CPT/HCPCS: 36415; 80069; 82043; 82306; 82570; 84550; 85025

== ENCOUNTER → 2020-07-16 10:54 | Outpatient (POV) | payer MEDICARE, BC, SELFPAY | PROVIDERS: Visit Provider Internal Medicine Nephrology | DX: Z00.00 Encounter for general adult medical examination without abnormal findings (principal) ==

== ENCOUNTER → 2021-01-29 07:50 | Outpatient (CLI) | payer MEDICARE, BC, SELFPAY ==
[2021-01-29 14:41] LABS: Chloride 102 mmol/L (98-107); Sodium 141 mmol/L (136-145)
[2021-01-29 14:44] LABS: Alanine Aminotransferase 37 U/L (12-78); Albumin Level 4.3 g/dl (3.5-5.0); Albumin/Globulin Ratio 1.8 (1.1-1.8); Alkaline Phosphatase 92 U/L (38-126); Aspartate Amino Transferase 46 U/L (17-59); Bilirubin,Total 0.5 mg/dl (0.2-1.3); Blood Urea Nitrogen 36 mg/dl (9-20); Carbon Dioxide 28 mmol/L (22.0-30.0); Estimated Glomerular Filt Rate 39 ml/min (>60); GFR (African American) 48 ML/MIN (>60); Globulin 2.4 g/dL (1.3-3.2); Total Protein,Serum 6.7 g/dl (6.3-8.2)
[2021-01-29 14:45] LABS: Glucose 106 mg/dl (74-100)
[2021-01-29 15:02] LABS: Triiodothryronine (T3) Uptake 33 % (23.5-40.5)
[2021-01-29 15:03] LABS: Free Thyroxine Index 2.6 ug/dL (5.93-13.13)
[2021-01-29 15:16] LABS: Thyroid Stimulating Hormone 1.66 uIU/mL (0.465-4.68)
[2021-01-29 15:17] LABS: Thyroid Stimulating Hormone 1.68 uIU/mL (0.465-4.68)
== END ==
PROVIDERS: PCP Family Medicine; Visit Provider Nurse Practitioner Acute Care
DX: Z92.29 Personal history of other drug therapy (principal); Z79.899 Other long term (current) drug therapy
CPT/HCPCS: 36415; 80053; 84436; 84443; 84479; 94060; 94726; 94729